=== PATIENT | male | born 1945 | race Caucasian/White ===

== ENCOUNTER 2020-04-03 19:21 | Emergency (ER) | payer OTHER ==
[2020-04-03] MEDS ORDERED: ONDANSETRON 4 MG/2 ML VIAL ONE ×2 (19:45→20:20)
[2020-04-03] MEDS ORDERED: NA CHLORIDE 0.9% 500 ML ONE (19:46)
[2020-04-03 20:07] LABS: Absolute Lymphocytes (CBC) 2.8 K/uL (0.7-4.9); Basophils % 0.9 % (0-1.3); Hematocrit 36.1 % (39.6-49.0); Lymphocytes % 26.3 % (15.3-44.8); MPV 7.4 fL (7.6-11.3); RBC Red Blood Cell Count 4.85 M/uL (4.33-5.43)
[2020-04-03 20:19] LABS: Albumin 3.9 g/dL (3.4-5.0); Bilirubin Direct 0.2 mg/dL (0-0.2); Bilirubin Total 0.9 mg/dL (0.2-1.0); Potassium 3.9 mmol/L (3.5-5.1); Protein, Total 8.4 g/dL (6.4-8.2)
[2020-04-03] MEDS ORDERED: ACETAMINOPHEN 500 MG TAB ONE (20:20)
--- NOTE | 2020-04-03 20:21 | RAD REPORT ---
EXAM DESCRIPTION: CT - Head Brain Wo Cont - 04/03/2020 8:03 pm CLINICAL HISTORY: HEADACHE COMPARISON: No comparisons TECHNIQUE: Axial 5 mm thick images of the head were obtained without IV contrast. All CT scans are performed using dose optimization technique as appropriate and may include automated exposure control or mA/KV adjustment according to patient size. FINDINGS: No intracranial hemorrhage, mass, edema or shift of mid-line structures. No acute infarcti on changes seen. No abnormal extra-axial fluid collections. Ventricles are in proportion brain parenc hymal volume. Patient has mild atrophy and mild chronic ischemic change. Mastoid air cells and visualized portions of the paranasal sinuses are clear. No acute bony findings. IMPRESSION: No acute intracranial finding. Mild atrophy and chronic ischemic change.
[2020-04-03 21:10] LABS: Urine Blood TRACE (NEG); Urine Glucose TRACE (NEG); Urine Protein NEGATIVE (NEG); Urine Specific Gravity 1.015 (1.005-1.030)
--- NOTE | 2020-04-03 21:40 | ER ---
Nurse's Notes [facility] Name: Tomas Braga Age: 74 yrs Sex: Male : 1945 Arrival Date: 04/03/2020 Time: 19:23 Bed 7 Private MD: Diagnosis: Headache Presentation: 04/03 19:24 Chief complaint: Patient states: "About 3:30 my head starting hurting in the back of my aj1 head. I walked in the store and I felt like I was going to fall, but I didn't. So I went and ate and when I got back home my head started hurting really bad and I knew I was going to fall. So I fell and my stomach started hurting really bad and I threw up. So I called my daughter and she brought me here" Patient's daughter states that he has a brain aneurysm, that they had checked in June, and it was stable at that time. Coronavirus screen: Proceed with normal triage. Ebola Screen: Patient denies travel to an Ebola-affected area in the 21 days before illness onset. Initial Sepsis Screen: Does the patient meet any 2 criteria? No. Patient's initial sepsis screen is negative. Does the patient have a suspected source of infection? No. Patient's initial sepsis screen is negative. Risk Assessment: Do you want to hurt yourself or someone else? Patient reports no desire to harm self or others. Onset of symptoms was April 03, 2020. 19:24 Method Of Arrival: Wheelchair aj1 19:24 Acuity: FRITZ 2 aj1 Triage Assessment: 19:32 Headache History: The patient has had previous headaches and this one is more severe aj1 than previous episodes. General: Appears in no apparent distress. uncomfortable, Behavior is calm, cooperative, appropriate for age. Pain: Pain currently is 4 out of 10 on a pain scale. Also complains of nausea, vomiting. Neuro: Level of Consciousness is awake, alert, obeys commands. Historical: - Allergies: 19:32 No Known Allergies; aj1 - Home Meds: 19:32 Insulin Glargine Sub-Q [Active]; Humalog Sub-Q [Active]; Famotidine Oral [Active]; aj1 gabapentin oral oral [Active]; atorvastatin oral oral [Active]; carvedilol oral oral [Active]; Aspirin Oral [Active]; mitochondrial energy booster [Active]; - PMHx: 19:32 Diabetes - NIDDM; Hyperlipidemia; aj1 - Immunization history:: Flu vaccine is not up to date. - Social history:: Smoking status: Patient/guardian denies using tobacco. Screenin:50 Abuse screen: Denies threats or abuse. Denies injuries from another. Nutritional rr5 screening: No deficits noted. Tuberculosis screening: No symptoms or risk factors identified. Fall Risk Fall in past 12 months (25 points). IV access (20 points). Total Nesbitt Fall Scale indicates High Risk Score (45 or more points). Fall prevention measures have been instituted. Side Rails Up X 2 Placed Close to Nursing Station Frequent Obs/Assessments Occuring Family Present and informed to notify staff if the need to leave the bedside As available patient and family educated on Fall Prevention Program and Strategies. Assessment: 20:00 General: Appears in no apparent distress. comfortable, Behavior is calm, cooperative, rr5 appropriate for age. 20:00 Pain: Complains of pain in head Pain does not radiate. Pain currently is 5 out of 10 on rr5 a pain scale. Quality of pain is described as aching, Pain began gradually, Is intermittent. Neuro: Level of Consciousness is awake, alert, obeys commands, Oriented to person, place, time, situation. Cardiovascular: Capillary refill < 3 seconds Patient's skin is warm and dry. Respiratory: Airway is patent Respiratory effort is even, unlabored, Respiratory pattern is regular, symmetrical. GI: Abdomen is round non-distended, Reports lower abdominal pain, upper abdominal pain, nausea. : No signs and/or symptoms were reported regarding the genitourinary system. EENT: No signs and/or symptoms were reported regarding the EENT system. Derm: Skin is intact, is healthy with good turgor, Skin temperature is warm Wound noted right ear top area Wound is 2 punctured wound. Musculoskeletal: Circulation, motion, and sensation intact. Capillary refill < 3 seconds. 20:33 Reassessment: Patient appears in no apparent distress at this time. Patient is alert, rr5 oriented x 3, equal unlabored respirations, skin warm/dry/pink. awaiting for results. 21:50 Reassessment: Patient appears in no apparent distress at this time. Patient is alert, rr5 oriented x 3, equal unlabored respirations, skin warm/dry/pink. discharge instruction given and explained without complaints made Patient states feeling better. Patient states symptoms have improved. Vital Signs: 19:24 BP 165 / 86; Pulse 65; Resp 18; Temp 98.2(TE); Pulse Ox 100% on R/A; Weight 79.38 kg aj1 (R); Height 5 ft. 7 in. (170.18 cm) (R); Pain 5/10; 21:00 BP 155 / 89; Pulse 75; Resp 17; Pulse Ox 98% ; rr5 21:50 BP 141 / 75; Pulse 69; Resp 19; Pulse Ox 99% on R/A; rr5 19:24 Body Mass Index 27.41 (79.38 kg, 170.18 cm) aj1 Milan Coma Score: 21:37 Eye Response: spontaneous(4). Verbal Response: oriented(5). Motor Response: obeys tw4 commands(6). Total: 15. ED Course: 19:23 Patient arrived in ED. cl3 19:30 Triage completed. aj1 19:32 Arm band placed on Patient placed in an exam room. aj1 19:34 Misha Pierce, GISELL is Primary Nurse. rr5 19:34 Reg Rg MD is Attending Physician. tw4 20:00 Patient has correct armband on for positive identification. Bed in low position. Call rr5 light in reach. Side rails up X2. Pulse ox on. NIBP on. 20:00 Inserted saline lock: 20 gauge in right forearm, using aseptic technique. Blood rr5 collected. 20:03 CT Head Brain wo Cont In Process Unspecified. EDMS 20:06 Urine collected: clean catch specimen, clear. rr5 20:10 Wound care: to puncture located on right ear was cleaned with irrigated with normal rr5 saline, dressed with Neosporin, band aid, Patient tolerated well. 21:50 No provider procedures requiring assistance completed. IV discontinued, intact, rr5 bleeding controlled, No redness/swelling at site. Pressure dressing applied. Administered Medications: 20:00 Drug: NS 0.9% 500 ml Route: IV; Rate: bolus; Site: right forearm; rr5 21:00 Follow up: Response: No adverse reaction; IV Status: Completed infusion; IV Intake: rr5 500ml 20:00 Drug: Zofran (Ondansetron) 4 mg Route: IVP; Site: right forearm; rr5 21:00 Follow up: Response: No adverse reaction rr5 20:15 Not Given (Patient Refused): Zofran (Ondansetron) 4 mg IVP once; over 2 minutes mg2 20:15 Drug: Tylenol 1000 mg Route: PO; mg2 21:15 Follow up: Response: No adverse reaction; Pain is decreased rr5 Intake: 21:00 IV: 500ml; Total: 500ml. rr5 Output: 19:55 Urine: 450ml (Voided); Total: 450ml. rr5 Outcome: 21:39 Discharge ordered by . tw4 21:50 Patient left the ED. rr5 21:50 Discharged to home ambulatory, with family. rr5 21:50 Condition: stable 21:50 Discharge instructions given to patient, Instructed on discharge instructions, follow up and referral plans. Demonstrated understanding of instructions, follow-up care, Prescriptions given X 2. Signatures: Dispatcher [employer] EDZenobia Pizarro RN RN aj1 Reg Rg MD MD tw4 El Mccullough RN RN mg2 Misha Pierce RN RN rr5 Shelby Herrera cl3 Corrections: (The following items were deleted from the chart) 22:20 22:19 No provider procedures requiring assistance completed. rr5 rr5 22:20 22:19 IV discontinued, intact, bleeding controlled, No redness/swelling at site. rr5 Pressure dressing applied, rr5
--- NOTE | 2020-04-03 21:40 | EDPHYS ---
Physician Documentation [facility] Name: Tomas Braga Age: 74 yrs Sex: Male : 1945 Arrival Date: 04/03/2020 Time: 19:23 Bed 7 Private MD: ED Physician Reg Rg HPI: 04/03 20:41 This 74 yrs old Male presents to ER via Wheelchair with complaints of tw4 Headache, Vomiting. 20:41 The patient complains of pain to the forehead. The patient describes the headache as a tw4 pressure. Onset: The symptoms/episode began/occurred today. Associated signs and symptoms: The patient has no apparent associated signs or symptoms. Severity of symptoms: At its worst the pain was moderate, in the emergency department the pain is unchanged. Headache History: The patient has had previous headaches and this one is similar to previous episodes. The symptoms are alleviated by nothing. the symptoms are aggravated by nothing. The patient has experienced a previous episode. Historical: - Allergies: 19:32 No Known Allergies; aj1 - Home Meds: 19:32 Insulin Glargine Sub-Q [Active]; Humalog Sub-Q [Active]; Famotidine Oral [Active]; aj1 gabapentin oral oral [Active]; atorvastatin oral oral [Active]; carvedilol oral oral [Active]; Aspirin Oral [Active]; mitochondrial energy booster [Active]; - PMHx: 19:32 Diabetes - NIDDM; Hyperlipidemia; aj1 - Immunization history:: Flu vaccine is not up to date. - Social history:: Smoking status: Patient/guardian denies using tobacco. ROS: 20:41 Constitutional: Negative for fever, chills, and weight loss, Eyes: Negative for injury, tw4 pain, redness, and discharge, Cardiovascular: Negative for chest pain, palpitations, and edema, Respiratory: Negative for shortness of breath, cough, wheezing, and pleuritic chest pain, Abdomen/GI: Negative for abdominal pain, nausea, vomiting, diarrhea, and constipation, Back: Negative for injury and pain, MS/Extremity: Negative for injury and deformity, Skin: Negative for injury, rash, and discoloration. 20:41 Neuro: Positive for headache, Negative for altered mental status, dizziness, gait disturbance, hearing loss, numbness, seizure activity, speech changes, syncope, tinnitus, tremor, visual changes. Exam: 20:41 Constitutional: This is a well developed, well nourished patient who is awake, alert, tw4 and in no acute distress. Head/Face: Normocephalic, atraumatic. Chest/axilla: Normal chest wall appearance and motion. Nontender with no deformity. No lesions are appreciated. Cardiovascular: Regular rate and rhythm with a normal S1 and S2. No gallops, murmurs, or rubs. Normal PMI, no JVD. No pulse deficits. Respiratory: Lungs have equal breath sounds bilaterally, clear to auscultation and percussion. No rales, rhonchi or wheezes noted. No increased work of breathing, no retractions or nasal flaring. Abdomen/GI: Soft, non-tender, with normal bowel sounds. No distension or tympany. No guarding or rebound. No evidence of tenderness throughout. MS/ Extremity: Pulses equal, no cyanosis. Neurovascular intact. Full, normal range of motion. Neuro: Awake and alert, GCS 15, oriented to person, place, time, and situation. Cranial nerves II-XII grossly intact. Motor strength 5/5 in all extremities. Sensory grossly intact. Cerebellar exam normal. Normal gait. Vital Signs: 19:24 BP 165 / 86; Pulse 65; Resp 18; Temp 98.2(TE); Pulse Ox 100% on R/A; Weight 79.38 kg aj1 (R); Height 5 ft. 7 in. (170.18 cm) (R); Pain 5/10; 21:00 BP 155 / 89; Pulse 75; Resp 17; Pulse Ox 98% ; rr5 21:50 BP 141 / 75; Pulse 69; Resp 19; Pulse Ox 99% on R/A; rr5 19:24 Body Mass Index 27.41 (79.38 kg, 170.18 cm) aj1 Blade Coma Score: 21:37 Eye Response: spontaneous(4). Verbal Response: oriented(5). Motor Response: obeys tw4 commands(6). Total: 15. MDM: 21:27 Patient medically screened. tw4 21:37 Differential diagnosis: cluster headache, hypertensive headache, intracerebral tw4 hemorrhage, subarachnoid bleed, subdural hematoma, temporal arteritis, trigeminal neuralgia. Data reviewed: vital signs, nurses notes, lab test result(s), CBC, electrolytes, radiologic studies, CT scan. Data interpreted: Pulse oximetry: Interpretation: normal. Counseling: I had a detailed discussion with the patient and/or guardian regarding: the historical points, exam findings, and any diagnostic results supporting the discharge/admit diagnosis, lab results, radiology results. Medication response: Zofran relieved the patient's nausea. Response to treatment: and as a result, I will discharge patient. Special discussion: I discussed with the patient/guardian in detail that at this point there is no indication for admission to the hospital. It is understood, however, that if the symptoms persist or worsen the patient needs to return immediately for re-evaluation. 04/03 19:35 Order name: Basic Metabolic Panel; Complete Time: 20:37 04/03 20:37 Interpretation: Normal except: NA 132; BUN 20; CRE 1.64; GFR 41; GLUC 152. 04/03 19:35 Order name: CBC with Diff; Complete Time: 20:11 04/03 20:38 Interpretation: Normal except: HGB 11.7; MCV 74.4; HCT 36.1; MCH 24.1; MPV 7.4; RDW tw4 16.4. 04/03 19:35 Order name: Hepatic Function; Complete Time: 20:37 04/03 20:37 Interpretation: Normal except: TP 8.4; GLOB 4.5; A/G 0.9. 04/03 19:35 Order name: Lipase; Complete Time: 20:37 04/03 20:38 Interpretation: Within normal limits: LIP 138. 04/03 20:16 Order name: Urine Dipstick--Ancillary (enter results); Complete Time: 21:18 nv5 04/03 21:18 Interpretation: Normal except: UBLD TRACE. 04/03 19:35 Order name: IV Saline Lock; Complete Time: 20:05 04/03 19:35 Order name: Labs collected and sent; Complete Time: 20:05 04/03 19:51 Order name: CT Head Brain wo Cont; Complete Time: 20:37 tw4 Administered Medications: 20:00 Drug: NS 0.9% 500 ml Route: IV; Rate: bolus; Site: right forearm; rr5 21:00 Follow up: Response: No adverse reaction; IV Status: Completed infusion; IV Intake: rr5 500ml 20:00 Drug: Zofran (Ondansetron) 4 mg Route: IVP; Site: right forearm; rr5 21:00 Follow up: Response: No adverse reaction rr5 20:15 Not Given (Patient Refused): Zofran (Ondansetron) 4 mg IVP once; over 2 minutes mg2 20:15 Drug: Tylenol 1000 mg Route: PO; mg2 21:15 Follow up: Response: No adverse reaction; Pain is decreased rr5 Disposition: 04/03/20 21:39 Discharged to Home. Impression: Headache. - Condition is Stable. - Discharge Instructions: General Headache Without Cause. - Prescriptions for Fiorinal 50- 325-40 mg Oral Capsule - take 1 capsule by ORAL route every 4 hours As needed - not to exceed 6 capsules per day; 20 capsule. Zofran 4 mg Oral Tablet - take 1 tablet by ORAL route every 12 hours As needed; 6 tablet. - Medication Reconciliation Form, Thank You Letter, Antibiotic Education, Prescription Opioid Use form. - Follow up: Private Physician; When: Upon discharge from the Emergency Department; Reason: Recheck today's complaints, Continuance of care, Re-evaluation by your physician. - Problem is new. - Symptoms have improved. Signatures: Dispatcher [employer] [facility] Zenobia Cano RN RN aj1 Reg Rg MD MD tw4 El Mccullough RN RN mg2 Misha Pierce RN RN rr5 Corrections: (The following items were deleted from the chart) 20:03 19:38 Head Brain W/ Wo Con+CT.RAD.BRZ ordered. [facility] 21:50 21:39 04/03/2020 21:39 Discharged to Home. Impression: Headache. Condition is Stable. rr5 Forms are Medication Reconciliation Form, Thank You Letter, Antibiotic Education, Prescription Opioid Use. Follow up: Private Physician; When: Upon discharge from the Emergency Department; Reason: Recheck today's complaints, Continuance of care, Re-evaluation by your physician. Problem is new. Symptoms have improved. tw4
[2020-04-03 22:06] VITALS: BP 165/86; TEMP 98.2; O2SAT 100
== END 2020-04-03 21:50 | disposition home or self-care (01) ==
LOC: ER 19:21
DX: R51 Headache (principal); E11.9 Type 2 diabetes mellitus without complications; E78.5 Hyperlipidemia, unspecified; Z79.4 Long term (current) use of insulin
CPT/HCPCS: 96361; 85025; 80048; 36415; 80076; 81003; 83690; 70450; 96374; 99284; J7040; J2405 ×2

== ENCOUNTER 2021-12-08 07:42 | Day surgery (SDC) | payer OTHER ==
[2021-12-08] MEDS ORDERED: NA CHLORIDE 0.9% 1,000 ML ONE (08:01)
[2021-12-08] MEDS ORDERED: FENTANYL CITR 100 MCG/2 ML ONE (10:20)
[2021-12-08] MEDS ORDERED: propofoL 200 MG/20 ML VIAL IV ONE (10:21)
[2021-12-08] MEDS ORDERED: MIDAZOLAM HCL 2 MG/2 ML INJ ONE (10:21)
[2021-12-08] MEDS ORDERED: LIDOCAINE 2% MPF 5 ML VIAL ONE (10:21)
[2021-12-08] MEDS ORDERED: LIDOCAINE 1% W/EPI 1:100,000 10 ML VIAL ONE (10:22)
[2021-12-08] MEDS ORDERED: EPHEDRINE SULF 50 MG/ML VIAL ONE (10:50)
[2021-12-08] MEDS ORDERED: CEFAZOLIN SODIUM 1 GM/VIAL ONE (10:58)
--- NOTE | 2021-12-08 12:39 | P.OP ---
Data Software Engineer: NONE,NONE Preoperative diagnosis: neoplasm uncertain behavior, skin Postoperative diagnosis: squamous cell carcinoma, left face Primary procedure: excision, left cheek/face, 4 cm x 3.5cm Secondary procedure: allograph (Theraskin) Anesthesia: General via LMA Estimated blood loss: 5-10ml Specimen: left cheek, Frozen section, suture mccarthy 12 oclock/superior Findings: negative peripheral and deep margins Operative Technique: Patient is brought to the operating room and placed under general anesthesia via oral LMA. The head was turned towards the right for exposure of the left face. The exophytic tumor was noted in the preauricular cheek. The tumor itself was approximately 2 x 2-1/2 cm with central ulceration and exophytic portion. A 8 to 10 mm margin was designed around the lesion and marked with a surgical pen. The superiormost aspect was designated as 12:00 for pathologic orientation. The 3:00 margin coincided with the edge of the tragal cartilage. The 9:00 margin slightly overlapped the patient's prior surgical site and well-healed skin graft from 2017. The needlepoint Bovie electrocautery was used to incise through the skin and subcutaneous tissue along the planned incision. The lesion was elevated along the SMAS layer. There was no lola invasion through this layer and no exposure of the parotid gland. Once the lesion was completely removed it was sent to pathology for frozen section analysis. Several areas of bleeding along the deep aspect were ligated with silk suture. The pathologist confirmed negative peripheral and deep margins. The surgical defect measured 4.0 x 3.6 cm the full-thickness skin and subcutaneous tissues down to the layer of the periparotid fascia. A TheraSkin allograft was applied to the defect which was secured in a radial fashion using 2-0 silk sutures. A Xeroform bolster was then applied over the allograft and cured using the silk sutures. The surrounding skin was cleaned and dried. The procedure was concluded and the patient was returned to anesthesia for awakening and extubation in the operating room which proceeded without difficulty. Complications: None Implants: none Transferred to: Recovery Room Condition: Good
[2021-12-08] MEDS ORDERED: D10W 125 ML IV ONE (13:00)
[2021-12-08] MEDS: MORPHINE 4 MG/ML SYR ONE ×4 (13:12→13:33)
[2021-12-08] MEDS ORDERED: HYDROMORPHONE HCL 1 MG/ML INJ ONE (13:40)
[2021-12-08] MEDS ORDERED: ONDANSETRON 4 MG/2 ML VIAL ONE (14:21)
[2021-12-08 14:47] VITALS: BP 125/55; TEMP 96.5; O2SAT 93
== END 2021-12-08 15:48 | disposition home or self-care (01) ==
LOC: OR 07:42
PROVIDERS: ATTEND Otolaryngology
PROC: 0JB10ZZ Excision of Face Subcutaneous Tissue and Fascia, Open Approach (ICD-10-PCS; principal; 2021-12-08 09:15)
DX: C76.0 Malignant neoplasm of head, face and neck (principal); Z20.822 Contact with and (suspected) exposure to COVID-19
CPT/HCPCS: 93005; 82947 ×3; 88331; 88332; 88305; 11644; 15275; U0002; J2704; J2250; J3010; J1170; J7030; J2405; J0690

== ENCOUNTER 2024-09-27 12:49 | Emergency (ER) | payer OTHER ==
--- OUTSIDE RECORDS SUMMARY | 2024-09-27 12:51 | XMS REPORT | Continuity of Care Document ---
Author Name Unknown Address [address] [facility] [address] [place] [address] [facility] thconnect Address [address] [place] [address] Care Team Providers Care Creative Developer Name Role Phone Deyanira Valdez Attending Clinician Unavail able Mauricio Colmenares Attending Clinician Unavailable Payers Payer Name Policy Type Policy Number Effective Date Expirati on Date Source [facility] C1 [id number] [facility] [id number] [facility] [id number] [facility] [id number] [facility] [id number] [facility] [id number] [facility] [id number] [facility] Problems Condition Name Condition Details Condition Category Status Onset Date Resolution Date Last Treatment Date Treating Clinician Comments Source [id number] Hydrocele, right Problem Active [facility] Benign prostatic hyperplasi a BPH (benign prostatic hyperplasi a) Problem Active [facility] 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 Ordering Clinician Indication Dosage Frequency Signature (SIG) Comments Components Source Doxycycline Hyclate 100 MG Doxycycline Hyclate 100 MG 05-04 00:00: 00 05-05 00:00 :00 No 2{capsu les} Doxycyclin e Hyclate 100 MG Cefdinir 300 MG Cefdinir 300 MG 04-03 00:00: 00 04-10 00:00 :00 No BID Cefdinir 300 MG [facility] Atorvastati n Calcium 20 MG Atorvastati n Calcium 20 MG No 1{table t} QD Atorvastat in Calcium 20 MG Aspirin 81 81 MG Aspirin 81 81 MG No 1{table t} QD Aspirin 81 81 MG Gabapentin 100 MG Gabapentin 100 MG No 1{capsu le} QD Gabapentin 100 MG Toujeo SoloStar 300u/ml Toujeo SoloStar 300u/ml No QD Toujeo SoloStar 300u/ml HumaLOG KwikPen 100 UNIT/ML HumaLOG KwikPen 100 UNIT/ML No HumaLOG KwikPen 100 UNIT/ML Cefuroxime Axetil 250 MG Cefuroxime Axetil 250 MG No 1{table t} BID Cefuroxime Axetil 250 MG Carvedilol 6.25 MG Carvedilol 6.25 MG No 1{table t_with_ food} BID Carvedilol 6.25 MG Multi Vitamin - Multi Vitamin - No 1{table t} QD Multi Vitamin - Famotidine 40 MG Famotidine 40 MG No 1{table t_at_be dtime} QD Famotidine 40 MG Vital Signs Vital Name Observation Time Observation Value Comments S julio césar height 2021-05-09 15:15:00 68 [in_i] Commo n [facility] weight 2021-05-09 15:15:00 187 [lb_av] Comm on [facility] temperature 2021-05-09 15:15:00 97.3 [degF] Com mon [facility] bmi 2021-05-09 15:15:00 28.43 kg/m2 Comm on [facility] oximetry 2021-05-09 15:15:00 98 % Commo n [facility] blood pressure systolic 2021-05-09 15:15:00 108 mm[Hg] [facility] pressure diastolic 2021-05-09 15:15:00 62 mm[Hg] [facility] height 2021-05-04 08:00:00 68 [in_i] Commo n [facility] weight 2021-05-04 08:00:00 180 [lb_av] Comm on [facility] temperature 2021-05-04 08:00:00 97.9 [degF] Com mon [facility] bmi 2021-05-04 08:00:00 27.37 kg/m2 Comm on [facility] oximetry 2021-05-04 08:00:00 99 % Commo n [facility] blood pressure systolic 2021-05-04 08:00:00 96 mm[Hg] [facility] blood pressure diastolic 2021-05-04 08:00:00 55 mm[Hg] [facility] height 2021-05-02 16:20:00 68 [in_i] Commo n [facility] weight 2021-05-02 16:20:00 183.4 [lb_av] Co mmon [facility] temperature 2021-05-02 16:20:00 98.5 [degF] Com mon [facility] bmi 2021-05-02 16:20:00 27.88 kg/m2 Comm on [facility] oximetry 2021-05-02 16:20:00 96 % Commo n [facility] blood pressure systolic 2021-05-02 16:20:00 114 mm[Hg] [facility] blood pressure diastolic 2021-05-02 16:20:00 65 mm[Hg] Common [facility] height 2021-04-03 13:40:00 68 [in_i] Commo n [facility] weight 2021-04-03 13:40:00 183.4 [lb_av] Co mmon [facility] temperature 2021-04-03 13:40:00 98.5 [degF] Com mon [facility] bmi 2021-04-03 13:40:00 27.88 kg/m2 Comm on [facility] oximetry 2021-04-03 13:40:00 94 % Commo n [facility] blood pressure systolic 2021-04-03 13:40:00 97 mm[Hg] [facility] blood pressure diastolic 2021-04-03 13:40:00 54 mm[Hg] [facility] Encounters Start Date/Time End Date/Time Encounter Type Admission Type Attending [facility] Care Facility Care Department Encounter ID Source 2024-04-09 13:34:01 Outpatient Deyanira Valdez [facility] [id number] [facility] 2021-11-15 13:25:55 Outpatient Mauricio Colmenares [facility] [id number] [facility] 2021-11-15 13:14:16 Outpatient Mauricio Colmenares [facility] [id number] [facility] 2021-07-05 00:00:00 2021-07-05 00:00:00 (TEL) [facility]LMLC STL[facility] [id number] [facility] 2021-05-09 00:00:00 2021-05-09 00:00:00 (ESTPT) Establishe d Patient STLMLC STLML[facility] [id number] [facility] 2021-05-04 00:00:00 2021-05-04 00:00:00 OFFICE VISIT EST PT LEVEL 3 [facility]LMLC STL[facility] [id number] [facility] 2021-05-02 00:00:00 2021-05-02 00:00:00 OFFICE VISIT EST PT LEVEL 3 [facility]LMLC STLML[facility] [id number] [facility] 2021-04-18 00:00:00 2021-04-18 00:00:00 (TEL) STLMLC STLMLC [id number] [facility] 2021-04-03 00:00:00 2021-04-03 00:00:00 OFFICE VISIT NEW PT LEVEL 3 [facility]C STL[facility]C [id number] [facility]
[2024-09-27 15:20] LABS: Absolute Basophils 0.1 K/uL (0-0.5); Absolute Eosinophils 0.2 K/uL (0-0.5); Absolute Lymphocytes (CBC) 2.5 K/uL (0.7-4.9); Absolute Neutrophil 7.8 K/uL (1.8-8.0); Basophils % 0.5 % (0-1.3); Eosinophils % 1.5 % (0-4.4); Hematocrit 39.1 % (39.6-49.0); Hemoglobin 12.8 g/dL (13.6-17.9); Lymphocytes % 21.7 % (15.3-44.8); MCH 29.5 pg (27.0-35.0); MCHC 32.7 g/dL (32.0-36.0); MCV 90.1 fL (80-100); Monocytes % 8.3 % (3.3-12.3); Platelets 338 thou/uL (152-406); RBC Red Blood Cell Count 4.35 M/uL (4.33-5.43); Red Cell Distribution Width 13.8 % (12.1-15.2)
[2024-09-27 15:44] LABS: Albumin 3.2 g/dL (3.4-5.0); Albumin/Globulin Ratio 0.7 (1.1-1.8); Anion Gap 8.5 mEq/L (5.0-15.0); Bilirubin Direct 0.2 mg/dL (0-0.2); Bilirubin Indirect, Calculated 0.3 mg/dL (0.2-0.8); Bilirubin Total 0.5 mg/dL (0.2-1.0); Globulin 4.6 g/dL (2.3-3.5); Magnesium 2.5 mg/dL (1.6-2.4); Potassium 4.5 mEq/L (3.5-5.1); Protein, Total 7.8 g/dL (6.4-8.2); Troponin High Sensitivity 25.1 pg/mL (<58.9)
--- NOTE | 2024-09-27 16:22 | RAD REPORT ---
EXAMINATION: CT HEAD WITHOUT CONTRAST CT CERVICAL SPINE WITHOUT CONTRAST CLINICAL INDICATION: Male, 79 years old. TRAUMA TECHNIQUE: Axial CT images from the skull base to the vertex without intravenous contrast. Axial CT i mages through the cervical spine were obtained without intravenous contrast. Sagittal and coronal reformatted images were created from the data set. Coronal and sagittal reformatted images were creat ed from the data set. One or more of the following dose reduction techniques were used: Automated exposure control, adjustment of the mA and/or kV according to patient size, and/or iterative reconstr uction. Unless otherwise specified, incidental findings do not require dedicated imaging follow-up. [id number]. COMPARISON: 04/03/2020 FINDINGS: Head: INTRACRANIAL: No acute intracranial hemorrhage. No hydrocephalus. No mass effect or midline shift. No significant white matter disease. VASCULATURE: No visualized abnormalities in the arteries or dural venous sinuses. SCALP/SKULL: No significant soft tissue or osseous abnormalities. SINUSES: The visualized paranasal sinuses and mastoid air cells are predominantly clear. Cervical spine: ALIGNMENT: Loss of the normal cervical lordosis. Trace anterolisthesis of C3 on C4 is noted. Trace re trolisthesis of C5 on C6. BONE: Vertebral body heights are maintained. No aggressive osseous lesions. DEGENERATIVE CHANGES: Multilevel cervical spondylosis with varying degrees of neural foraminal narrow ing. No high-grade central spinal stenosis. SOFT TISSUE: No significant abnormalities in the soft tissue of the neck. The visualized lung apices are clear. IMPRESSION: No acute intracranial abnormality. No acute fracture or traumatic malalignment of the cervical spine.
--- NOTE | 2024-09-27 16:26 | RAD REPORT ---
EXAM: CT CHEST, ABDOMEN AND PELVIS WITHOUT CONTRAST CLINICAL INDICATION: Male, 79 years TRAUMA TECHNIQUE: CT chest, abdomen and pelvis was performed, with IV contrast, as per department protocol. Axial, sagittal and coronal reconstructions were obtained. One or more of the following dose reduction techniques were used: Automated exposure control, adjustment of the mA and/or kV according to the patient size, and/or iterative reconstruction. Unless otherwise specified, incidental findings do not require dedicated imaging follow-up. [id number]. COMPARISON: No prior exam. FINDINGS: Chest: LOWER NECK/CHEST WALL: Visualized thyroid gland and soft tissues are normal. LUNGS AND AIRWAYS: Airways are clear. No evidence of airspace or interstitial process. No nodules. PLEURA: No pleural effusion. No pneumothorax. Hemidiaphragms are normally positioned. MEDIASTINUM AND LYMPH NODES: No mediastinal mass or fluid collection. Normal size mediastinal, hilar, and axillary lymph nodes. THORACIC AORTA: Normal caliber and configuration. PULMONARY ARTERIES: Normal caliber. HEART: Multivessel coronary disease. No pericardial effusion. Normal heart size. Abdomen/Pelvis LIVER: Normal in size and contour. No focal lesion. GALLBLADDER/BILE DUCTS: No biliary ductal dilatation. PANCREAS: Pancreatic atrophy. SPLEEN: Normal size. No focal lesion. ADRENALS: Normal; no mass. KIDNEYS AND URETERS: Bilateral hydroureteronephrosis. Both kidneys are atrophic with renal cortical t hinning. Nonobstructing stones in the kidneys bilaterally. No ureteral calculi. GASTROINTESTINAL TRACT: Moderate formed stool. No bowel obstruction. No appendicitis. PERITONEUM: No free fluid. LYMPH NODES: No lymphadenopathy. ABDOMINAL AORTA AND OTHER VESSELS: Atherosclerotic changes. URINARY BLADDER: Distended bladder. REPRODUCTIVE ORGANS: Question prior TURP . MUSCULOSKELETAL: No acute or suspicious osseous abnormality. Bridging osteophytes in the spine. ADDITIONAL FINDINGS: None IMPRESSION: 1. Mild bilateral hydroureteronephrosis with distended bladder could be secondary to bladder outlet o bstruction. Chronic renal cortical thinning. 2. No acute findings in the chest.
--- NOTE | 2024-09-27 17:00 | ER ---
Nurse's Notes [facility] Name: Tomas Braga Age: 79 yrs Sex: Male : 1945 Arrival Date: 09/27/2024 Time: 12:49 Bed 8 Private MD: Diagnosis: Orthostatic hypotension, closed head injury, multiple abrasions, and frequent falls, bladder outflow obstruction, renal insufficiency Presentation: 09/27 13:42 Acuity: FRITZ 2 aa5 13:42 Chief complaint: Patient states: "I fell twice today and I fallen a few times over the aa5 weekend as well". Pt states "I just get weak and fall". Pt c/o pain to head and abdomen. Initial Sepsis Screen: Does the patient meet any 2 criteria? No. Patient's initial sepsis screen is negative. Does the patient have a suspected source of infection? No. Patient's initial sepsis screen is negative. Risk Assessment: Do you want to hurt yourself or someone else? Patient reports no desire to harm self or others. Onset of symptoms was September 27, 2024. 13:42 Coronavirus screen: At this time, the client does not indicate any symptoms associated aa5 with coronavirus-19. Ebola Screen: Patient denies travel to an Ebola-affected area in the 21 days before illness onset. 13:42 Method Of Arrival: Wheelchair aa5 Historical: - Allergies: 13:44 shrimp; aa5 - PMHx: 13:43 Diabetes - NIDDM; Hyperlipidemia; Hypertensive disorder; aa5 - Immunization history:: Adult Immunizations unknown. - Infectious Disease History:: Denies. - Social history:: Smoking status: Patient denies any tobacco usage or history of. Screenin:27 [facility] ED Fall Risk Assessment (Adult) History of falling in the last 3 months, tm6 including since admission Yes- fall prone (multiple falls) (3 pts) Confusion or Disorientation No (0 pts) Intoxicated or Sedated No (0 pts) Impaired Gait No (0 pts) Mobility Assist Device Used No (0 pt) Altered Elimination No (0 pt) Score/Fall Risk Level 3 or more points = High Risk Oriented to surroundings, Maintained a safe environment, Educated pt \\T\\ family on fall prevention, incl call for assistance when getting out of bed. Abuse screen: Denies threats or abuse. Denies injuries from another. Nutritional screening: No deficits noted. Tuberculosis screening: No symptoms or risk factors identified. Assessment: 15:27 General: Appears in no apparent distress. Behavior is calm, cooperative. Pain: Denies tm6 pain. Neuro: Level of Consciousness is awake, alert, obeys commands, Oriented to person, place, time, situation, Reports dizziness, upon standing. Cardiovascular: Reports lightheadedness, Patient's skin is warm and dry. Respiratory: Airway is patent Respiratory effort is even, unlabored, Respiratory pattern is regular, symmetrical. GI: No signs and/or symptoms were reported involving the gastrointestinal system. Abdomen is flat, non-distended. : No signs and/or symptoms were reported regarding the genitourinary system. EENT: No signs and/or symptoms were reported regarding the EENT system. Derm: No signs and/or symptoms reported regarding the dermatologic system. Musculoskeletal: No signs and/or symptoms reported regarding the musculoskeletal system. Vital Signs: 13:42 BP 98 / 63; Pulse 81; Resp 16 S; Temp 98(O); Pulse Ox 97% on R/A; Weight 81.65 kg (R); aa5 Height 5 ft. 7 in. (R); 15:20 BP 141 / 70 Supine; Pulse 66; Resp 18; Pulse Ox 99% on R/A; MAP 90 mmHg; Pain 0/10; tm6 15:27 BP 106 / 54 Sitting; Pulse 76; Pulse Ox 96% on R/A; MAP 67 mmHg; tm6 16:30 BP 132 / 67; Pulse 70; Resp 18; Pulse Ox 100% on R/A; ph 17:16 BP 125 / 67; Pulse 73; Resp 18; Temp 97.9; Pulse Ox 98% on R/A; ph 13:42 Body Mass Index 28.19 (81.65 kg, 170.18 cm) aa5 15:20 Pain Scale: Adult tm6 ED Course: 12:53 Patient arrived in ED. mg5 13:42 Triage completed. aa5 13:42 Arm band placed on. aa5 14:17 Kolby Anand MD is Attending Physician. sp3 14:51 Enio Ashton, GISELL is Primary Nurse. tm6 15:17 Basic Metabolic Panel Sent. em1 15:17 CBC with Diff Sent. em1 15:17 LFT's Sent. em1 15:17 Magnesium Sent. em1 15:17 Troponin HS Sent. em1 15:17 Initial lab(s) drawn, by me, sent to lab. Inserted saline lock: 20 gauge in right em1 antecubital area, using aseptic technique. Blood collected. Flushed with 10 mL NS. 15:19 EKG done, by ED staff, reviewed by Kolby Anand MD. tm6 15:27 Patient has correct armband on for positive identification. Bed in low position. Call tm6 light in reach. Side rails up X2. Provided Education on: use of call puentes. Client placed on continuous cardiac and pulse oximetry monitoring. NIBP monitoring applied. accounting coordinator on. Pulse ox on. NIBP on. Door closed. Noise minimized. Pillow given. 16:10 Head C Spine Mpr Wo Con In Process Unspecified. EDMS 16:10 Chest Abdomen Pelvis W Cont In Process Unspecified. EDMS 16:59 UAM Sent. tm6 17:17 No provider procedures requiring assistance completed. IV discontinued, intact, ph bleeding controlled, No redness/swelling at site. Pressure dressing applied. Administered Medications: No medications were administered Medication: 15:27 VIS not applicable for this client. tm6 Outcome: 16:59 Discharge ordered by . sp3 17:17 Discharged to home via wheelchair, with family, 17:17 Condition: good 17:17 Discharge instructions given to patient, family, Instructed on discharge instructions, follow up and referral plans. Demonstrated understanding of instructions, follow-up care, 17:17 Patient left the ED. ph Addendum: 09/30/2024 16:10 Addendum: Culture Results: Positive urine culture. Phone call Attempt #1 left message. l l1 16:27 Addendum: Culture Results: Prescription called-in to pharmacy of choice. [facility] in [place]. Amoxicillin. Signatures: Dispatcher [employer] EDMS Brayden Alvarez em1 Jordana Gallardo, RN RN aa5 Meseret Wright, GISELL JAMESON ph Juju Herrera, RN RN ll1 Kolby Anand MD MD sp3 Ernestina Chavez 5 Enio Ashton RN RN tm6 Corrections: (The following items were deleted from the chart) 09/27 13:45 13:43 Allergies: No Known Allergies; aa5 aa5 16:23 16:23 Urine 1200, (Voided), output 1200, tm6 tm6
--- NOTE | 2024-09-27 17:00 | EDPHYS ---
Physician Documentation [facility] Name: Tomas Braga Age: 79 yrs Sex: Male : 1945 Arrival Date: 09/27/2024 Time: 12:49 Bed 8 Private MD: ED Physician Kolby Anand HPI: 09/27 16:54 This 79 yrs old Male presents to ER via Wheelchair with complaints of Fall Injury. 3 16:54 79-year-old male with history of diabetes, hyperlipidemia, hypertension presents to the [facility] ED with chief complaint frequent falls particularly after getting up. He denies any prodrome other than dizziness. Injuries include closed head injury with abrasions and hematoma, multiple abrasions throughout the body. He denies before or after falls chest pain, shortness of breath, fever or any other symptoms. ROS otherwise negative.. Historical: - Allergies: 13:44 shrimp; aa5 - PMHx: 13:43 Diabetes - NIDDM; Hyperlipidemia; Hypertensive disorder; aa5 - Immunization history:: Adult Immunizations unknown. - Infectious Disease History:: Denies. - Social history:: Smoking status: Patient denies any tobacco usage or history of. ROS: 16:56 Constitutional: Negative for fever, chills, and weight loss, Eyes: Negative for injury, sp3 pain, redness, and discharge, Neck: Negative for injury, pain, and swelling, Cardiovascular: Negative for chest pain, palpitations, and edema, Respiratory: Negative for shortness of breath, cough, wheezing, and pleuritic chest pain, Abdomen/GI: Negative for abdominal pain, nausea, vomiting, diarrhea, and constipation, Back: Negative for injury and pain, MS/Extremity: Negative for injury and deformity, Skin: Negative for injury, rash, and discoloration, Psych: Negative for depression, anxiety, suicide ideation, homicidal ideation, and hallucinations, Allergy/Immunology: Negative for hives, rash, and allergies, Endocrine: Negative for neck swelling, polydipsia, polyuria, polyphagia, and marked weight changes, 16:56 All other systems are negative, Exam: 16:15 ECG was reviewed by the Attending Physician. EKG demonstrates normal sinus rhythm at 71 sp3 bpm with patient to AV block with MA interval 234 with occasional ectopy, leftward axis and poor R wave progression, and nonspecific diffuse ST's ST changes without evidence of acute ischemia. 16:57 Constitutional: This is a well developed, well nourished patient who is awake, alert, sp3 and in no acute distress. Eyes: Pupils equal round and reactive to light, extra-ocular motions intact. Lids and lashes normal. Conjunctiva and sclera are non-icteric and not injected. Cornea within normal limits. Periorbital areas with no swelling, redness, or edema. ENT: Nares patent. No nasal discharge, no septal abnormalities noted. External auditory canals are clear. Oropharynx with no redness, swelling, or masses, exudates, or evidence of obstruction, uvula midline. Mucous membranes moist. Chest/axilla: Normal chest wall appearance and motion. Nontender with no deformity. No lesions are appreciated. Cardiovascular: Regular rate and rhythm with a normal S1 and S2. No gallops, murmurs, or rubs. Normal PMI, no JVD. No pulse deficits. Respiratory: Lungs have equal breath sounds bilaterally, clear to auscultation and percussion. No rales, rhonchi or wheezes noted. No increased work of breathing, no retractions or nasal flaring. Abdomen/GI: Soft, non-tender, with normal bowel sounds. No distension or tympany. No guarding or rebound. No evidence of tenderness throughout. Back: No spinal tenderness. No costovertebral tenderness. Full range of motion. Psych: Awake, alert, with orientation to person, place and time. Behavior, mood, and affect are within normal limits. 16:57 Head/face: Patient with abrasions to the forehead and scalp with abrasions also present on bilateral elbows and torso. No significant bony or MSK injury noted on the extremities. Chest and abdomen exam are negative for any traumatic findings. Vital signs are normal.. Vital Signs: 13:42 BP 98 / 63; Pulse 81; Resp 16 S; Temp 98(O); Pulse Ox 97% on R/A; Weight 81.65 kg (R); aa5 Height 5 ft. 7 in. (R); 15:20 BP 141 / 70 Supine; Pulse 66; Resp 18; Pulse Ox 99% on R/A; MAP 90 mmHg; Pain 0/10; tm6 15:27 BP 106 / 54 Sitting; Pulse 76; Pulse Ox 96% on R/A; MAP 67 mmHg; tm6 16:30 BP 132 / 67; Pulse 70; Resp 18; Pulse Ox 100% on R/A; ph 17:16 BP 125 / 67; Pulse 73; Resp 18; Temp 97.9; Pulse Ox 98% on R/A; ph 13:42 Body Mass Index 28.19 (81.65 kg, 170.18 cm) aa5 15:20 Pain Scale: Adult tm6 MDM: 14:43 Medical Screening Exam initiated sp3 16:57 Data reviewed: vital signs, nurses notes, lab test result(s), EKG, radiologic studies. sp3 ED course: 79-year-old male with frequent falls and dizziness/near syncope. Differential diagnosis includes orthostatic hypotension, electrolyte abnormality, other infectious process, other intracranial process, among others. Workup will include CT scan of the head, C-spine, chest abdomen pelvis trauma protocol, general labs, UA and general supportive care. Orthostatic demonstrate significant drop in blood pressure upon standing and I believe this is the culprit of his symptoms. CT scan demonstrates no intracranial or C-spine findings and bilateral urine back up consistent with probable outflow obstruction which may be incidental finding. Creatinine is mildly elevated. This time we will discharge patient home with follow-up to his PCP and urology and instructions on how to combat orthostatic hypotension. No other findings noted from a trauma standpoint patient is stable and cleared for discharge.. 09/27 14:45 Order name: Basic Metabolic Panel; Complete Time: 16:40 sp3 09/27 14:45 Order name: CBC with Diff; Complete Time: 16:40 sp3 09/27 14:45 Order name: LFT's; Complete Time: 16:40 sp3 09/27 14:45 Order name: Magnesium; Complete Time: 16:40 sp3 09/27 14:45 Order name: Troponin HS; Complete Time: 16:40 sp3 09/27 14:45 Order name: UAM sp3 09/27 17:17 Order name: Urine Culture EDMS 09/27 14:56 Order name: Head C Spine Mpr Wo Con; Complete Time: 16:40 EDMS 09/27 14:58 Order name: Chest Abdomen Pelvis W Cont; Complete Time: 16:40 EDMS 09/27 14:45 Order name: EKG; Complete Time: 14:45 sp3 09/27 14:45 Order name: Cardiac monitoring; Complete Time: 15:19 sp3 09/27 14:45 Order name: EKG - Nurse/Tech; Complete Time: 15:19 sp3 09/27 14:45 Order name: IV Saline Lock; Complete Time: 15:17 sp3 09/27 14:45 Order name: Labs collected and sent; Complete Time: 15:17 sp3 09/27 14:45 Order name: O2 Per Protocol; Complete Time: 15:19 sp3 09/27 14:45 Order name: O2 Sat Monitoring; Complete Time: 15:19 sp3 Administered Medications: No medications were administered Disposition Summary: 09/27/24 16:59 Discharge Ordered Notes: Location: Home sp3 Condition: Stable sp3 Diagnosis - Orthostatic hypotension, closed head injury, multiple abrasions, and frequent sp3 falls, bladder outflow obstruction, renal insufficiency Followup: sp3 - With: Private Physician - When: Upon discharge from the Emergency Department - Reason: Continuance of care Discharge Instructions: - Discharge Summary Sheet sp3 - Orthostatic Hypotension sp3 - Understanding Your Risk for Falls sp3 Forms: - Medication Reconciliation Form sp3 - Antibiotic Education sp3 - Prescription Opioid Use sp3 - Patient Portal Instructions sp3 - Leadership Thank You Letter sp3 Signatures: Dispatcher [employer] Jordana Haynes RN RN aa5 Kolby Anand MD MD sp3 Corrections: (The following items were deleted from the chart) 13:45 13:43 Allergies: No Known Allergies; aa5 aa5 14:56 14:45 Head C Spine CAP W Con+CT.RAD.BRZ ordered. EDMS EDMS
[2024-09-27 17:14] LABS: Specific Gravity 1.009 (1.005-1.030); Sqamous Epithelial <5 /HPF (None Seen); Urine Bacteria <20 /HPF (<20); Urine Bilirubin NEGATIVE (Negative); Urine Blood Trace (Negative); Urine Clarity Extremely Turbid (Clear); Urine Color Light-Yellow (Yellow); Urine Crystals Unidentified Few /HPF (None Seen); Urine Culture Reflex Order REFLEXED; Urine Glucose NEGATIVE (Negative); Urine Ketones NEGATIVE (Negative); Urine Micro Reflex YN NO BILL MICROSCOPIC; Urine Nitrite NEGATIVE (Negative); Urine Protein NEGATIVE (Negative); Urine RBC 21-50 /HPF (None Seen); Urine Urobilinogen Normal (Normal); Urine WBC >50 /HPF (<5)
[2024-09-27 20:04] VITALS: BP 125/67; TEMP 97.9; O2SAT 98
== END 2024-09-27 17:17 | disposition home or self-care (01) ==
LOC: ER 12:49
DX: I95.1 Orthostatic hypotension (principal); S00.01XA Abrasion of scalp, initial encounter; S00.81XA Abrasion of other part of head, initial encounter; S50.312A Abrasion of left elbow, initial encounter; S50.311A Abrasion of right elbow, initial encounter; R29.6 Repeated falls; N32.0 Bladder-neck obstruction; N28.9 Disorder of kidney and ureter, unspecified; E11.9 Type 2 diabetes mellitus without complications; I10 Essential (primary) hypertension
CPT/HCPCS: 87088; 85025; 81001; 87086; 80048; 36415; 83735; 80076; 87077; 87186; 84484; 70450; 72125; 71260; 74177; 99284; Q9967

== ENCOUNTER 2024-10-13 21:51 | Inpatient (IN) | payer OTHER ==
--- OUTSIDE RECORDS SUMMARY | 2024-10-13 21:54 | XMS REPORT | Continuity of Care Document ---
Author Name Unknown Address [address] [facility] [facility] [place] [address] [facility] thconnect Address [address] [facility] [address] [place] [address] Care Team Providers Care Talent Acquisition Relationship Manager Name Role Phone Deyanira Valdez Attending Clinician Unavail able Mauricio Colmenares Attending Clinician Unavailable Payers Payer Name Policy Type Policy Number Effective Date Expirati on Date Source [facility] LIFE INS [facility] C1 [id number] [facility] [id number] [facility] [id number] [facility] [id number] [facility] [id number] [facility] [id number] [facility] [id number] C [facility] Problems Condition Name Condition Details Condition Category Status Onset Date Resolution Date Last Treatment Date Treating Clinician Comments Source [id number] Hydrocele, right Problem Active [facility] Benign prostatic hyperplasi a BPH (benign prostatic hyperplasi a) Problem Active [facility] 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 Ordering Clinician Indication Dosage Frequency Signature (SIG) Comments Components Source Doxycycline Hyclate 100 MG Doxycycline Hyclate 100 MG 05-04 00:00: 00 05-05 00:00 :00 No 2{capsu les} Doxycyclin e Hyclate 100 MG Cefdinir 300 MG Cefdinir 300 MG 04-03 00:00: 00 04-10 00:00 :00 No BID Cefdinir 300 MG [facility] Atorvastati n Calcium 20 MG Atorvastati n [...] height 2021-05-09 15:15:00 68 [in_i] Commo n [facility] weight 2021-05-09 15:15:00 187 [lb_av] Comm on [facility] temperature 2021-05-09 15:15:00 97.3 [degF] Com mon [facility] bmi 2021-05-09 15:15:00 28.43 kg/m2 Comm on [facility] oximetry 2021-05-09 15:15:00 98 % Commo n [facility] blood pressure systolic 2021-05-09 15:15:00 108 mm[facility]Hg[facility] blood pressure diastolic 2021-05-09 15:15:00 62 mm[Hg] [facility] height 2021-05-04 08:00:00 68 [in_i] Commo n [facility] weight 2021-05-04 08:00:00 180 [lb_av] Comm on [facility] temperature 2021-05-04 08:00:00 97.9 [degF] Com mon [facility] bmi 2021-05-04 08:00:00 27.37 kg/m2 Comm on [facility] oximetry 2021-05-04 08:00:00 99 % Commo n [facility] blood pressure systolic 2021-05-04 08:00:00 96 mm[Hg] [facility] blood pressure diastolic 2021-05-04 08:00:00 55 mm[Hg] [facility] height 2021-05-02 16:20:00 68 [in_i] Commo n [facility] weight 2021-05-02 16:20:00 183.4 [lb_av] Co mmon [facility] temperature 2021-05-02 16:20:00 98.5 [degF] Com mon [facility] bmi 2021-05-02 16:20:00 27.88 kg/m2 Comm on [facility] oximetry 2021-05-02 16:20:00 96 % Commo n [facility] blood pressure systolic 2021-05-02 16:20:00 114 mm[Hg] Common [facility] blood pressure diastolic 2021-05-02 16:20:00 65 mm[Hg] Common [facility] height 2021-04-03 13:40:00 68 [in_i] Commo n [facility] weight 2021-04-03 13:40:00 183.4 [lb_av] Co mmon [facility] temperature 2021-04-03 13:40:00 98.5 [degF] Com mon [facility] bmi 2021-04-03 13:40:00 27.88 kg/m2 Comm on [facility] oximetry 2021-04-03 13:40:00 94 % Commo n [facility] blood pressure systolic 2021-04-03 13:40:00 97 mm[Hg] [facility] blood pressure diastolic 2021-04-03 13:40:00 54 mm[Hg] [facility] Encounters Start Date/Time End Date/Time Encounter Type Admission Type Attending [facility] Care Department Encounter ID Source 2024-04-09 13:34:01 Outpatient Deyanira Valdez [facility] ST[facility] [id number] [facility] 2021-11-15 13:25:55 Outpatient Mauricio Colmenares [facility] ST[facility] [id number] [facility] 2021-11-15 13:14:16 Outpatient Mauricio Colmenares [facility] ST[facility] [id number] [facility] 2021-07-05 00:00:00 2021-07-05 00:00:00 (TEL) [facility] ST[facility] [id number] [facility] 2021-05-09 00:00:00 2021-05-09 00:00:00 (ESTPT) Establishe d Patient [facility]LMLC ST[facility]C [id number] [facility] 2021-05-04 00:00:00 2021-05-04 00:00:00 OFFICE VISIT EST PT LEVEL 3 [facility] ST[facility]C [id number] [facility] 2021-05-02 00:00:00 2021-05-02 00:00:00 OFFICE VISIT EST PT LEVEL 3 [facility] ST[facility]C [id number] [facility] 2021-04-18 00:00:00 2021-04-18 00:00:00 (TEL) STLMLC STLMLC [id number] [facility] 2021-04-03 00:00:00 2021-04-03 00:00:00 OFFICE VISIT NEW PT LEVEL 3 [facility]C STLMLC [id number] [facility]
[2024-10-13 22:19] LABS: Absolute Basophils 0.1 K/uL (0-0.5); Absolute Eosinophils 0.3 K/uL (0-0.5); Absolute Lymphocytes (CBC) 2.5 K/uL (0.7-4.9); Absolute Neutrophil 5.1 K/uL (1.8-8.0); Basophils % 0.6 % (0-1.3); Eosinophils % 2.9 % (0-4.4); Hematocrit 38.9 % (39.6-49.0); Hemoglobin 12.8 g/dL (13.6-17.9); Lymphocytes % 27.8 % (15.3-44.8); MCH 29.4 pg (27.0-35.0); MCHC 32.8 g/dL (32.0-36.0); MCV 89.6 fL (80-100); MPV 7.1 fL (7.6-11.3); Monocytes % 11.1 % (3.3-12.3); Neutrophils % 57.6 % (41.7-73.7); Platelets 298 thou/uL (152-406); RBC Red Blood Cell Count 4.34 M/uL (4.33-5.43); Red Cell Distribution Width 13.8 % (12.1-15.2)
[2024-10-13 22:26] LABS: PT Prothrombin Time 11.7 SECONDS (9.4-12.5); Protime INR 1.05
--- NOTE | 2024-10-13 22:36 | RAD REPORT ---
Procedure: Chest Single View HISTORY: Syncope COMPARISON: September 2024 FINDINGS: The lungs appear clear of acute infiltrate. No significant pleural effusion noted. The heart is normal size. IMPRESSION: No acute abnormality is displayed.
[2024-10-13 22:39] LABS: Albumin/Globulin Ratio 0.7 (1.1-1.8); Anion Gap 9.4 mEq/L (5.0-15.0); Bilirubin Direct 0.2 mg/dL (0-0.2); Bilirubin Indirect, Calculated 0.3 mg/dL (0.2-0.8); Bilirubin Total 0.5 mg/dL (0.2-1.0); Globulin 4.4 g/dL (2.3-3.5); Magnesium 2.1 mg/dL (1.6-2.4); Potassium 3.4 mEq/L (3.5-5.1); Protein, Total 7.4 g/dL (6.4-8.2); Troponin High Sensitivity 17.9 pg/mL (<58.9)
[2024-10-13] MEDS ORDERED: D5 0.9 NS 1,000 ML IV ONE (23:05)
--- NOTE | 2024-10-14 00:46 | EDPHYS ---
Physician Documentation [facility] Name: Tomas Braga Age: 79 yrs Sex: Male : 1945 Arrival Date: 10/13/2024 Time: 21:51 Bed 4 Private MD: ED Physician Grupo Sherwood HPI: 10/13 21:58 This 79 yrs old Male presents to ER via Unassigned with complaints of Low sp4 Blood Sugar, Fall Injury. 21:58 79-year-old male presents with blood sugar over 19 at home. Patient had syncopal sp4 episode at home. Patient resides by himself. EMS administered 1 amp of D50. Last blood sugar 117.. 10/14 22:57 Patient presents with EMS for apparent syncopal episode at home associated with sp4 hypoglycemia. Patient states he has administered insulin at home but not sure what dose. Historical: - Allergies: 10/13 22:20 shrimp; al5 22:20 Iodine; al5 - Home Meds: 22:20 Insulin Glargine Sub-Q [Active]; aspirin 81 mg oral tablet,chewable [Active]; al5 Mitochondrial Energy Booster [Active]; Humalog Sub-Q [Active]; gabapentin Oral [Active]; carvedilol Oral [Active]; Famotidine Oral [Active]; atorvastatin Oral [Active]; - PMHx: 22:20 Diabetes - NIDDM; Hyperlipidemia; Hypertensive disorder; al5 - Immunization history:: Adult Immunizations not up to date. - Infectious Disease History:: Denies. - Immunization history: Last tetanus immunization: - up to date. - Social history:: Smoking status: Patient denies any tobacco usage or history of. - Family history:: not pertinent. ROS: 10/14 22:57 Constitutional: Negative for fever, chills, and weight loss, positive for syncope and sp4 low blood sugar All other systems are negative, Exam: 22:57 Constitutional: This is a well developed, well nourished patient who is awake, alert, sp4 and in no acute distress. Signs of moderate dementia Head/Face: Normocephalic, atraumatic. Eyes: Pupils equal round and reactive to light, extra-ocular motions intact. Lids and lashes normal. Conjunctiva and sclera are not injected. Cornea within normal limits. Periorbital areas with no swelling, redness, or edema. ENT: Nares patent. No nasal discharge, no septal abnormalities noted. Tympanic membranes are normal and external auditory canals are clear. Oropharynx with no redness, swelling, or masses, exudates, or evidence of obstruction, uvula midline. Mucous membranes moist. Neck: Trachea midline, no thyromegaly or masses palpated, and no cervical lymphadenopathy. Supple, full range of motion without nuchal rigidity, or vertebral point tenderness. Chest/axilla: Normal chest wall appearance and motion. Nontender with no deformity. No lesions are appreciated. Cardiovascular: Regular rate and rhythm with a normal S1 and S2. No gallops, murmurs, or rubs. Normal PMI, no JVD. No pulse deficits. Respiratory: Lungs have equal breath sounds bilaterally, clear to auscultation and percussion. No rales, rhonchi or wheezes noted. No increased work of breathing, no retractions or nasal flaring. Abdomen/GI: Soft, with normal bowel sounds. No distension or tympany. No guarding or rebound. No evidence of tenderness throughout. Back: No spinal tenderness. No costovertebral tenderness. Skin: Warm, dry with normal turgor. Normal color with no rashes, no lesions, and no evidence of cellulitis. MS/ Extremity: Pulses equal, no cyanosis. Neurovascular intact. Full, normal range of motion. Neuro: Awake and alert, GCS 15, oriented to person, signs of moderate to dementia, cranial nerves II-XII grossly intact. Motor strength 5/5 in all extremities. Sensory grossly intact. 22:57 ECG was reviewed by the Attending Physician. EKG at sinus rhythm with first-degree AV block left axis deviation. Vital Signs: 10/13 22:20 BP 140 / 90; Pulse 68; Resp 18; Temp 98.3; Pulse Ox 100% on R/A; Weight 72.57 kg; al5 Height 5 ft. 7 in. ; Pain 0/10; 22:30 BP 144 / 90; Pulse 66; Resp 18; Pulse Ox 100% on R/A; al5 23:00 BP 154 / 87; Pulse 65; Resp 16; Pulse Ox 100% on R/A; al5 10/14 00:00 BP 152 / 88; Pulse 67; Resp 16; Pulse Ox 99% on R/A; al5 00:30 BP 151 / 83; Pulse 63; Resp 15; Pulse Ox 100% on R/A; al5 01:00 BP 102 / 90; Pulse 68; Resp 16; Pulse Ox 100% on R/A; al5 01:30 BP 136 / 76; Pulse 65; Resp 16; Pulse Ox 100% on R/A; al5 02:39 BP 167 / 74; Pulse 64 MON; Resp 20 S; Pulse Ox 99% on R/A; aa10 10/13 22:20 Body Mass Index 25.06 (72.57 kg, 170.18 cm) al5 02:39 Normal Sinus Rhythm aa10 10/13 22:20 Pain Scale: Adult al5 Blade Coma Score: 10/13 22:20 Eye Response: spontaneous(4). Motor Response: obeys commands(6). Verbal Response: al5 oriented(5). Total: 15. 10/14 22:57 Eye Response: spontaneous(4). Motor Response: obeys commands(6). Verbal Response: sp4 oriented(5). Total: 15. Trauma Score (Adult): 10/13 22:20 Eye Response: spontaneous(1); Verbal Response: oriented(1); Motor Response: obeys al5 commands(2); Systolic BP: > 89 mm Hg(4); Respiratory Rate: 10 to 29 per min(4); Blade Score: 15; Trauma Score: 12 MDM: 22:00 Medical Screening Exam initiated sp4 22:00 Differential diagnosis: [place]'s syndrome, DKA, hyperglycemia, hyperthyroidism, sp4 hypoglycemic episode. Data reviewed: vital signs, nurses notes, EMS record, old medical records, lab test result(s), EKG, radiologic studies, plain films. 10/14 23:03 Consideration of Admission/Observation Patient was admitted/placed on observation. sp4 Escalation of care including admission/observation considered. Management of patient was discussed with the following: Hospitalist: Wicho MONTANEZ . ED course: Exam Date: 10/13/24 Procedure: Chest Single View HISTORY: Syncope COMPARISON: September 2024 FINDINGS: The lungs appear clear of acute infiltrate. No significant pleural effusion noted. The heart is normal size. IMPRESSION: No acute abnormality is displayed. . 10/13 21:57 Order name: Basic Metabolic Panel; Complete Time: 00:40 sp4 10/13 21:57 Order name: CBC with Diff; Complete Time: 00:40 sp4 10/13 21:57 Order name: LFT's; Complete Time: 00:40 sp4 10/13 21:57 Order name: Magnesium; Complete Time: 00:40 sp4 10/13 21:57 Order name: NT PRO-BNP; Complete Time: 00:40 sp4 10/13 21:57 Order name: PT-INR; Complete Time: 00:40 sp4 10/13 21:57 Order name: Troponin HS; Complete Time: 00:40 sp4 10/13 22:19 Order name: Glucose, Ancillary Testing; Complete Time: 00:40 EDMS 10/14 00:42 Order name: Glucose, Ancillary Testing; Complete Time: 01:07 EDMS 10/14 01:23 Order name: Urinalysis w/ reflexes EDMS 10/14 01:23 Order name: CBC with Automated Diff EDMS 10/14 01:23 Order name: CBC with Automated Diff EDMS 10/14 01:23 Order name: Comprehensive Metabolic Panel EDMS 10/14 01:23 Order name: Comprehensive Metabolic Panel EDMS 10/14 01:23 Order name: Magnesium EDMS 10/14 01:23 Order name: Magnesium EDMS 10/14 01:23 Order name: Phosphorus EDMS 10/14 01:23 Order name: Phosphorus EDMS 10/14 01:23 Order name: Troponin High Sensitivity EDMS 10/14 01:23 Order name: Troponin High Sensitivity EDMS 10/14 01:23 Order name: Troponin High Sensitivity EDMS 10/14 01:23 Order name: Troponin High Sensitivity EDMS 10/13 21:57 Order name: XRAY Chest (1 view); Complete Time: 00:40 sp4 10/13 21:57 Order name: EKG; Complete Time: 21:58 sp4 10/13 21:57 Order name: Cardiac monitoring; Complete Time: 23:28 sp4 10/13 21:57 Order name: EKG - Nurse/Tech; Complete Time: 23:27 sp4 10/13 21:57 Order name: IV Saline Lock; Complete Time: 22:17 sp4 10/13 21:57 Order name: Labs collected and sent; Complete Time: 22:17 sp4 10/13 21:57 Order name: O2 Per Protocol; Complete Time: 22:17 sp4 10/13 21:57 Order name: O2 Sat Monitoring; Complete Time: 22:17 sp4 EC/24 22:00 Rate is 64 beats/min. Rhythm is regular, Sinus Rhythm. Left axis deviation noted. MI sp4 interval is prolonged. QRS interval is normal. QT interval is normal. No Q waves. T waves are Normal. No ST changes noted. Clinical impression: No evidence of ischemia. Interpreted by me. Reviewed by me. Administered Medications: 23: Drug: D5-NS IV 1000 ml IV at 125 ml/hr continuous Route: IV; Rate: 125 ml/hr; Site: [facility] right hand; 10/14 01:23 Follow up: Response: No adverse reaction; IV Status: Infusion continued upon admission al5 Disposition Summary: 10/14/24 00:46 Hospitalization Ordered Notes: Hospitalization Status: Observation sp4 Provider: Maksim Sands sp4 Location: Telemetry/MedSurg (observation) sp4 Condition: Stable sp4 Problem: new sp4 Symptoms: have improved sp4 Bed/Room Type: Standard sp4 Room Assignment: 214(10/14/24 01:39) rv1 Diagnosis - Hypoglycemia secondary to Insulin, Syncope secondary to hypoglycemia sp4 Forms: - Medication Reconciliation Form sp4 - SBAR form sp4 - Leadership Thank You Letter sp4 Signatures: Dispatcher [employer] Nikki Gonzales rv1 Grupo Sherwood MD MD sp4 Khushbu Villasenor RN RN al5 Corrections: (The following items were deleted from the chart) 01:39 00:46 sp4 rv1
--- NOTE | 2024-10-14 00:46 | ER ---
Nurse's Notes [facility] Name: Tomas Braga Age: 79 yrs Sex: Male : 1945 Arrival Date: 10/13/2024 Time: 21:51 Bed 4 Private MD: Diagnosis: Hypoglycemia secondary to Insulin, Syncope secondary to hypoglycemia Presentation: 10/13 22:17 Chief complaint: EMS states: patient was found in recliner unresponsive by friend, al5 kitchen table toppled over. patient friend toned out EMS and when EMS arrived, patient was responsive but out of it. patient blood sugar was 19. D50 was given on scene. Care prior to arrival: Medication(s) given: D50, 1 amp, IV initiated. 20 GA, in the right hand, Glucose check: 117. Mechanism of Injury: Fall. Trauma event details: Injury occurred in the [facility], Injury occurred: at home. Injury occurred: October 13, 2024. 22:17 Acuity: FRITZ 3 al5 22:17 Method Of Arrival: EMS: [facility] al5 22:17 Coronavirus screen: At this time, the client does not indicate any symptoms associated al5 with coronavirus-19. Ebola Screen: No symptoms or risks identified at this time. Initial Sepsis Screen: Does the patient meet any 2 criteria? No. Patient's initial sepsis screen is negative. Does the patient have a suspected source of infection? No. Patient's initial sepsis screen is negative. Risk Assessment: Do you want to hurt yourself or someone else? Patient reports no desire to harm self or others. Onset of symptoms was October 13, 2024. Triage Assessment: 22:20 General: see trauma assessment. al5 Trauma Activation: Physician: ED Physician; Name: ; Notified At: ; Arrived At: Physician: General Surgeon; Name: ; Notified At: ; Arrived At: Physician: Radiology; Name: ; Notified At: ; Arrived At: Physician: Respiratory; Name: ; Notified At: ; Arrived At: Physician: Lab; Name: ; Notified At: ; Arrived At: 22:17 n/a al5 Historical: - Allergies: 22:20 shrimp; al5 22:20 Iodine; al5 - Home Meds: 22:20 Insulin Glargine Sub-Q [Active]; aspirin 81 mg oral tablet,chewable [Active]; al5 Mitochondrial Energy Booster [Active]; Humalog Sub-Q [Active]; gabapentin Oral [Active]; carvedilol Oral [Active]; Famotidine Oral [Active]; atorvastatin Oral [Active]; - PMHx: 22:20 Diabetes - NIDDM; Hyperlipidemia; Hypertensive disorder; al5 - Immunization history:: Adult Immunizations not up to date. - Infectious Disease History:: Denies. - Immunization history: Last tetanus immunization: - up to date. - Social history:: Smoking status: Patient denies any tobacco usage or history of. - Family history:: not pertinent. Screenin:20 Abuse screen: Denies threats or abuse. Denies injuries from another. Nutritional al5 screening: No deficits noted. Tuberculosis screening: No symptoms or risk factors identified. 22:20 [facility] ED Fall Risk Assessment (Adult) History of falling in the last 3 months, al5 including since admission Yes- physiologic fall (2 pts) Confusion or Disorientation No (0 pts) Intoxicated or Sedated No (0 pts) Impaired Gait No (0 pts) Mobility Assist Device Used No (0 pt) Altered Elimination No (0 pt) Score/Fall Risk Level 0 - 2 = Low Risk Oriented to surroundings, Maintained a safe environment, Hourly rounding (assess needs \T\ fall precautionary measures) done. Primary Survey: 22:20 NO uncontrolled hemorrhage observed. A: The client is awake and alert. The airway is al5 patent. The client is alert. Breathing/Chest: Spontaneous respiratory effort, equal unlabored respirations, breath sounds clear bilaterally, regular pattern, symmetrical chest rise and fall. Respiratory effort: spontaneous, unlabored. Circulation: No external hemorrhage present. Regular and strong central pulse, skin warm/dry/normal color. Skin color: pink, Skin temperature: warm, dry. Disability Pupils are equal, round, reactive to light and accommodation. Client is alert. Exposure/Environment: There is no evidence of uncontrolled external bleeding. No obvious injuries are noted at this time. A warming method has been applied: A warm blanket has been provided to the patient. 10/14 00:00 Reassessment Alertness and Airway: Awake and alert. The airway is patent. Airway Patent al5 Breathing: Spontaneous respiratory effort, equal unlabored respirations, breath sounds clear bilaterally, regular pattern with symmetrical chest rise and fall. Respiratory effort Spontaneous Unlabored Respiratory pattern Regular Circulation: No external hemorrhage noted. Regular and strong central pulse, skin warm/dry/normal color. Color [place] Temperature Warm Dry Disability: Pupils Pupils are equal, round, reactive to light and accomodation. Alert. Secondary Survey: 10/13 22:20 HEENT: No deficits noted. Gastrointestinal: No deficits noted. : No deficits noted. al5 Musculoskeletal: No deficits noted. Assessment: 22:20 General: Appears in no apparent distress. comfortable, Behavior is calm, cooperative. al5 Pain: Denies pain. Neuro: Level of Consciousness is awake, alert, obeys commands, Oriented to person, place, time, situation. EENT: No signs and/or symptoms were reported regarding the EENT system. Cardiovascular: Capillary refill < 3 seconds Patient's skin is warm and dry. Respiratory: Airway is patent Respiratory effort is even, unlabored, Respiratory pattern is regular, symmetrical. GI: Reports low blood sugar. : No signs and/or symptoms were reported regarding the genitourinary system. Derm: Skin is intact, Skin is pink, warm \T\ dry. normal. Musculoskeletal: No signs and/or symptoms reported regarding the musculoskeletal system. 23:00 Reassessment: Patient appears in no apparent distress at this time. Patient and/or al5 family updated on plan of care and expected duration. Pain level reassessed. Patient is alert, oriented x 3, equal unlabored respirations, skin warm/dry/pink. Patient states feeling better. Patient states symptoms have improved. 10/14 00:00 Reassessment: Patient appears in no apparent distress at this time. No changes from al5 previously documented assessment. Patient and/or family updated on plan of care and expected duration. Pain level reassessed. Patient is alert, oriented x 3, equal unlabored respirations, skin warm/dry/pink. 01:27 Reassessment: Patient appears in no apparent distress at this time. No changes from al5 previously documented assessment. Patient and/or family updated on plan of care and expected duration. Pain level reassessed. Patient is alert, oriented x 3, equal unlabored respirations, skin warm/dry/pink. 02:40 Reassessment: Patient appears in no apparent distress at this time. No changes from aa10 previously documented assessment. Patient and/or family updated on plan of care and expected duration. Pain level reassessed. Patient is alert, oriented x 3, equal unlabored respirations, skin warm/dry/pink. Vital Signs: 10/13 22:20 BP 140 / 90; Pulse 68; Resp 18; Temp 98.3; Pulse Ox 100% on R/A; Weight 72.57 kg; al5 Height 5 ft. 7 in. ; Pain 0/10; 22:30 BP 144 / 90; Pulse 66; Resp 18; Pulse Ox 100% on R/A; al5 23:00 BP 154 / 87; Pulse 65; Resp 16; Pulse Ox 100% on R/A; al5 10/14 00:00 BP 152 / 88; Pulse 67; Resp 16; Pulse Ox 99% on R/A; al5 00:30 BP 151 / 83; Pulse 63; Resp 15; Pulse Ox 100% on R/A; al5 01:00 BP 102 / 90; Pulse 68; Resp 16; Pulse Ox 100% on R/A; al5 01:30 BP 136 / 76; Pulse 65; Resp 16; Pulse Ox 100% on R/A; al5 02:39 BP 167 / 74; Pulse 64 MON; Resp 20 S; Pulse Ox 99% on R/A; aa10 10/13 22:20 Body Mass Index 25.06 (72.57 kg, 170.18 cm) al5 02:39 Normal Sinus Rhythm aa10 10/13 22:20 Pain Scale: Adult al5 Bern Coma Score: 10/13 22:20 Eye Response: spontaneous(4). Motor Response: obeys commands(6). Verbal Response: al5 oriented(5). Total: 15. 10/14 22:57 Eye Response: spontaneous(4). Motor Response: obeys commands(6). Verbal Response: sp4 oriented(5). Total: 15. Trauma Score (Adult): 10/13 22:20 Eye Response: spontaneous(1); Verbal Response: oriented(1); Motor Response: obeys al5 commands(2); Systolic BP: > 89 mm Hg(4); Respiratory Rate: 10 to 29 per min(4); Blade Score: 15; Trauma Score: 12 ED Course: 21:52 Patient arrived in ED. jj6 21:52 Grupo Sherwood MD is Attending Physician. sp4 21:58 Langhorst, Khushbu, RN is Primary Nurse. al5 22:10 Initial lab(s) drawn, by me, sent to lab. sa1 22:15 Blood Glucose was 87, notified nurse. sa1 22:17 Arm band placed on right wrist. Patient placed in the treatment room, on a stretcher, al5 on pulse oximetry. 22:20 Triage completed. al5 22:20 No provider procedures requiring assistance completed. Maintain EMS IV. Dressing al5 intact. Good blood return noted. Site clean \T\ dry. Gauge \T\ site: 20G R hand. 22:20 Thermoregulation: warm blanket given to patient. al5 22:20 Patient has correct armband on for positive identification. Bed in low position. Call al5 light in reach. Side rails up X2. Patient maintains SpO2 saturation greater than 95% on room air. 22:20 Provided Education on: plan of care. al5 22:21 XRAY Chest (1 view) In Process Unspecified. EDMS 22:23 Basic Metabolic Panel Sent. sa1 22:23 CBC with Diff Sent. sa1 22:23 LFT's Sent. sa1 22:23 Magnesium Sent. sa1 22:23 NT PRO-BNP Sent. sa1 22:24 Troponin HS Sent. sa1 22:24 PT-INR Sent. sa1 23:03 EKG done, by ED staff. sa1 10/14 00:45 Maksim Sands MD is Hospitalizing Provider. sp4 02:51 Troponin High Sensitivity Sent. aa10 02:58 Patient admitted, IV remains in place. al5 Administered Medications: 10/13 23:27 Drug: D5-NS IV 1000 ml IV at 125 ml/hr continuous Route: IV; Rate: 125 ml/hr; Site: al5 right hand; 10/14 01:23 Follow up: Response: No adverse reaction; IV Status: Infusion continued upon admission al5 Medication: 10/13 22:59 VIS not applicable for this client. al5 Intake: 22:20 n/a al5 Outcome: 10/14 00:00 Patient's length of stay in the Emergency Department was greater than 2 hours. al5 admittedPatient's length of stay extended due to 00:46 Decision to Hospitalize by Provider. sp4 02:57 Admitted to Med/surg accompanied by tech, via wheelchair, room 214, with chart, al5 02:57 Condition: stable 02:57 Instructed on the need for admit, 02:59 Patient left the ED. al5 Signatures: Dispatcher [employer] EDSasha [id number] Grupo Sherwood MD MD sp4 Khushbu Villasenor RN RN al5 Sultan Kenn sa1 Chela Grubbs RN RN aa10
[2024-10-14] MEDS ORDERED: ACETAMINOPHEN 325 MG TABLET PO PRN (01:18)
[2024-10-14] MEDS ORDERED: ONDANSETRON 4 MG/2 ML VIAL IV PRN (01:18)
--- NOTE | 2024-10-14 01:18 | P.HP ---
Certification for Inpatient Patient admitted to: Observation With expected LOS: <2 Midnights Practitioner: I am a practitioner with admitting privileges, knowledge of patient current condition, hospital course, and medical plan of care. Services: Services provided to patient in accordance with Admission requirements found in Title 42 Section 412.3 of the Code of Federal Regulations Patient History Date of Service: 10/14/24 Reason for admission: Hypoglycemia History of Present Illness: 79 yrs old with past medical history of diabetes, hypertension, hyperlipidemia brought to ER with low blood sugar and syncopal episode at home. Patient lives alone and he administered insulin by himself unknown amount without eating much. Patient was found to be in hypoglycemic with a sugar of 19. EMS gave D50 and blood sugar came to 117. Patient denies any chest pain or shortness of breath. No fever or chills. Patient has a history of dementia. Patient was assessed in the ER was admitted for further management of hypoglycemia Allergies shellfish derived Allergy (Severe, Verified 12/04/21 11:15) Nausea/Vomiting Home medications list reviewed: Yes Home Medications: Atorvastatin Calcium [Lipitor*] 20 mg PO BEDTIME 05/19/14 Insulin Glargine,Hum.rec.anlog [Toujeo Solostar] 65 unit SQ BEDTIME 01/23/17 Insulin Lispro [Humalog] 16 unit SQ BIDWM 01/23/17 Aspirin [Aspirin EC 81 MG] 81 mg PO DAILY 12/04/21 Famotidine [Pepcid] 40 mg PO DAILY 12/04/21 Tamsulosin HCl 0.4 mg PO BEDTIME 12/04/21 Topiramate [Topamax] 25 mg PO BID 12/04/21 carvediloL [Coreg] 6.25 mg PO BIDWM 12/04/21 Gabapentin [Neurontin] 100 mg PO DAILY 10/14/24 - Past Medical/Surgical History Diabetic: Yes Past Medical History: Reviewed- Non-Contributory -: HTN -: increased cholesterol Past Surgical History: Reviewed- Non-Contributory -: appendectomy -: cataract - Family History Family History: Reviewed- Non-Contributory - Social History Smoking Status: Never smoker Alcohol use: No CD- Drugs: No Caffeine use: Yes Review of Systems 10-point ROS is otherwise unremarkable Physical Examination - Vital Signs Temperature: 98.3 F Blood Pressure: 145/90 Pulse: 82 Respirations: 18 Pulse Ox (%): 94 - Physical Exam General: Alert, In no apparent distress HEENT: Atraumatic, Normocephalic Neck: Supple Respiratory: Clear to auscultation bilaterally, Normal air movement Cardiovascular: Normal pulses, Regular rate/rhythm Capillary refill: <2 Seconds Gastrointestinal: Soft and benign, W/out hepatosplenomegaly Musculoskeletal: No clubbing, No swelling Integumentary: No rashes Neurological: Normal speech, Normal strength at 5/5 x4 extr Lymphatics: No axilla or inguinal lymphadenopathy - Studies Laboratory Data (last 24 hrs) 10/13/24 10/13/24 10/13/24 22:10 22:10 22:10 WBC 8.90 Hgb 12.8 L Hct 38.9 L Plt Count 298 PT 11.7 INR 1.05 Sodium 135 L Potassium 3.4 L BUN 21 H Creatinine 1.62 H Glucose 92 Magnesium 2.1 Total Bilirubin 0.5 AST 23 ALT 24 Alkaline Phosphatase 104 Assessment and Plan - Plan Recurrent hypoglycemia Will watch closely Will hold antidiabetic medications Continue D5 half NS Hypertension Antihypertensives titrated Continue home medications and titrate as needed Hyperlipidemia Continue statin Acute kidney injury Monitor renal parameters Electrolytes monitor and replace accordingly IV hydration Diabetes Insulin sliding scale Accu-Chek before every meal and at bedtime GI/DVT prophylaxis Advanced directive full code Discharge Plan: Home Plan to discharge in: 24 Hours - Advance Directives Does patient have a Living Will: No Does patient have a Durable POA for Healthcare: No - Code Status/Comfort Care Code Status: Full Code Time Spent Managing Pts Care (In Minutes): 48
[2024-10-14] MEDS: D5 0.45 NS 1,000 ML IV SCH (03:32)
[2024-10-14] MEDS: POTASSIUM CL SA 10 MEQ TAB PO ONE (06:38)
[2024-10-14] MEDS: FAMOTIDINE 20 MG TAB PO SCH (09:26)
[2024-10-14] MEDS: ASPIRIN EC 81 MG TAB PO SCH (09:27)
[2024-10-14] MEDS: GABAPENTIN 100 MG CAP PO SCH (09:27)
[2024-10-14] MEDS: TOPIRAMATE 25 MG TAB PO SCH (09:27)
[2024-10-14] MEDS: carvediloL 6.25 MG TAB PO SCH (09:27)
[2024-10-14 09:54] LABS: Specific Gravity 1.005 (1.005-1.030); Sqamous Epithelial <5 /HPF (None Seen); Urine Bacteria None Seen /HPF (<20); Urine Bilirubin NEGATIVE (Negative); Urine Blood Negative (Negative); Urine Clarity Turbid (Clear); Urine Color Light-Yellow (Yellow); Urine Culture Reflex Order REFLEXED; Urine Glucose NEGATIVE (Negative); Urine Ketones NEGATIVE (Negative); Urine Microscopic Reflex YN ORDER UMIC; Urine Nitrite NEGATIVE (Negative); Urine Protein NEGATIVE (Negative); Urine RBC <5 /HPF (None Seen); Urine Urobilinogen Normal (Normal); Urine pH 6.5 (5.0-7.0)
[2024-10-14] MEDS: FLU (Fluarix Triv) TS24-25(6MOS UP)/PF 45 MCG/0.5 ML Syringe IM ONE (12:00)
[2024-10-14] MEDS: LACTULOSE 20 GM/30 ML UCUP PO SCH (15:59)
[2024-10-14] MEDS: TAMSULOSIN 0.4 MG SR CAP PO SCH (19:40)
[2024-10-14] MEDS: ATORVASTATIN 20 MG TAB PO SCH (19:40)
[2024-10-15] MEDS ORDERED: D10W 125 ML IV PRN (00:06)
[2024-10-15] MEDS ORDERED: GLUCAGON 1 MG/VIAL IM PRN (00:06)
[2024-10-15] MEDS: INSULIN REGULAR (HUMAN) 100 UNIT/ML SQ SCH ×2 (00:47→21:57)
[2024-10-15 05:51] LABS: Absolute Eosinophils 0.2 K/uL (0-0.5); Absolute Lymphocytes (CBC) 2.9 K/uL (0.7-4.9); Absolute Monocytes 0.8 K/uL (0.1-1.3); Absolute Neutrophil 4.1 K/uL (1.8-8.0); Basophils % 0.5 % (0-1.3); Eosinophils % 3.1 % (0-4.4); Hematocrit 35.9 % (39.6-49.0); Hemoglobin 12.2 g/dL (13.6-17.9); MCH 30.3 pg (27.0-35.0); MCHC 33.9 g/dL (32.0-36.0); MCV 89.4 fL (80-100); MPV 6.8 fL (7.6-11.3); Monocytes % 9.8 % (3.3-12.3); Neutrophils % 50.6 % (41.7-73.7); Platelets 297 thou/uL (152-406); RBC Red Blood Cell Count 4.02 M/uL (4.33-5.43)
[2024-10-15 06:21] LABS: Albumin 2.7 g/dL (3.4-5.0); Albumin/Globulin Ratio 0.7 (1.1-1.8); Anion Gap 5.6 mEq/L (5.0-15.0); Bilirubin Total 0.4 mg/dL (0.2-1.0); Globulin 3.9 g/dL (2.3-3.5); Magnesium 2.1 mg/dL (1.6-2.4); Phosphorus 2.5 mg/dL (2.5-4.9); Potassium 3.6 mEq/L (3.5-5.1); Protein, Total 6.6 g/dL (6.4-8.2)
[2024-10-15] MEDS: POTASSIUM CL SA 10 MEQ TAB PO ONE (09:09)
[2024-10-15] MEDS: NA CHLORIDE 0.9% 1,000 ML IV SCH (11:37)
[2024-10-16 04:58] LABS: Hematocrit 34.7 % (39.6-49.0); Hemoglobin 11.4 g/dL (13.6-17.9); MCH 29.8 pg (27.0-35.0); MCHC 32.8 g/dL (32.0-36.0); MCV 90.8 fL (80-100); MPV 7.7 fL (7.6-11.3); Platelets 248 thou/uL (152-406); RBC Red Blood Cell Count 3.82 M/uL (4.33-5.43); Red Cell Distribution Width 13.8 % (12.1-15.2)
[2024-10-16 05:14] LABS: Albumin 2.6 g/dL (3.4-5.0); Phosphorus 1.7 mg/dL (2.5-4.9)
[2024-10-16 06:38] VITALS: BMI 25.0
--- NOTE | 2024-10-16 07:43 | P.DS ---
Admission Date: 10/15/24 Discharge Date: 10/17/24 Reason for Admission: Hypoglycemia Brief History of Present Illness: 79 yrs old with past medical history of diabetes, hypertension, hyperlipidemia brought to ER with low blood sugar and syncopal episode at home. Patient lives alone and he administered insulin by himself unknown amount without eating much. Patient was found to be in hypoglycemic with a sugar of 19. EMS gave D50 and blood sugar came to 117. Patient denies any chest pain or shortness of breath. No fever or chills. Patient has a history of dementia. Patient was assessed in the ER was admitted for further management of hypoglycemia - Physical Exam General: Alert, In no apparent distress HEENT: Atraumatic, Normocephalic Neck: Supple Respiratory: Clear to auscultation bilaterally, Normal air movement Cardiovascular: Normal pulses, Regular rate/rhythm Capillary refill: <2 Seconds Gastrointestinal: Soft and benign, W/out hepatosplenomegaly Musculoskeletal: No clubbing, No swelling Integumentary: No rashes Neurological: Normal speech, Normal strength at 5/5 x4 extr Lymphatics: No axilla or inguinal lymphadenopathy Hospital Course: 79 yrs old with past medical history of diabetes, hypertension, hyperlipidemia brought to ER with low blood sugar and syncopal episode at home. Patient lives alone and he administered insulin by himself unknown amount without eating much. Patient was found to be in hypoglycemic with a sugar of 19. EMS gave D50 and blood sugar came to 117. Patient denies any chest pain or shortness of breath. No fever or chills. Patient has a history of dementia. Patient was assessed in the ER was admitted for further management of hypoglycemia. Insulin was held, he was noted to be hyptensive, IVF were adm inistered. BP improved. History of falls, he was seen by PT. plan to discharge home with [facility] with PT, SN. Daughter stated she will be staying with him. Plan to discharge home with home health, rolling walker ordered. Seen by PT while inpatient Assessment Dizziness improved with IV fluids, meclizine, MRI of the brain no acute abnormality Recurrent hypoglycemia improved with holding Hypotension adjust BP meds improved with IV fluid Antihypertensives instructed tokeep bp log daily Hyperlipidemia Continue statin Acute kidney injury IV hydration Diabetes Insulin strict BG monitoring after discharge Continue home medicines as previously prescribed GOAL: Clear understanding of disease process INSTRUCTIONS: Physician Discharge Instructions: -Follow-up with PCP in 1 to 2 weeks -Please call Dr. Barboza at [phone] if any questions regarding hospital stay -Please call nursing station at [phone] if any nursing or medication questions -Return to the emergency room if symptoms worsen Diet: ADA, low sodium Activity: Fall precautions <Qiana Amaro - Last Filed: 10/19/24 12:20> Admission Date: 10/15/24 Discharge Date: 10/17/24 Hospital Course: Chart has been reviewed. Events of the last 24 hours have been noted. Case discussed with JUD. I performed a substantial part of the MDM during this patient's care today. I personally made or approved the documented management plan and acknowledge its risk of complications. I agree with the findings and documentation provided in the JUD's notes Patient blood sugars are stable. Adjusted patient's insulin dosage. Advised patient not to take any insulin unless blood sugars greater than 250. Patient's clinical symptoms have improved and patient ambulated throughout the nurses station with physical therapy. At this time, patient is stable for discharge home. <Sarai Barboza - Last Filed: 10/20/24 05:17> Disposition: DC HOME/HOME HEALTH CARE Discharge Condition: GOOD Vital Signs/Physical Exam: Temp Pulse Resp BP Pulse Ox 97.8 F 77 16 138/63 95 10/16/24 04:00 10/16/24 04:00 10/16/24 04:00 10/16/24 04:00 10/16/24 04:00 Laboratory Data at Discharge: WBC 8.70 thou/uL (4.3-10.9) 10/16/24 03:59 Hgb 11.4 g/dL (13.6-17.9) L 10/16/24 03:59 Hct 34.7 % (39.6-49.0) L 10/16/24 03:59 Plt Count 248 thou/uL (152-406) 10/16/24 03:59 PT 11.7 SECONDS (9.4-12.5) 10/13/24 22:10 INR 1.05 10/13/24 22:10 Sodium 140 mEq/L (136-145) 10/16/24 03:59 Potassium 4.0 mEq/L (3.5-5.1) 10/16/24 03:59 BUN 19 mg/dL (7-18) H 10/16/24 03:59 Creatinine 1.64 mg/dL (0.70-1.30) H 10/16/24 03:59 Glucose 153 mg/dL (74-106) H 10/16/24 03:59 Phosphorus 1.7 mg/dL (2.5-4.9) L 10/16/24 03:59 Magnesium 2.1 mg/dL (1.6-2.4) 10/15/24 05:28 Total Bilirubin 0.4 mg/dL (0.2-1.0) 10/15/24 05:28 AST 25 U/L (15-37) 10/15/24 05:28 ALT 23 U/L (16-61) 10/15/24 05:28 Alkaline Phosphatase 99 U/L (45-117) 10/15/24 05:28 <Qiana Amaro - Last Filed: 10/19/24 12:20> Vital Signs/Physical Exam: Temp Pulse Resp BP Pulse Ox 97.9 F 78 16 118/56 L 92 10/19/24 12:30 10/19/24 12:30 10/19/24 12:30 10/19/24 12:30 10/19/24 12:30 Laboratory Data at Discharge: WBC 8.70 thou/uL (4.3-10.9) 10/16/24 03:59 Hgb 11.4 g/dL (13.6-17.9) L 10/16/24 03:59 Hct 34.7 % (39.6-49.0) L 10/16/24 03:59 Plt Count 248 thou/uL (152-406) 10/16/24 03:59 PT 11.7 SECONDS (9.4-12.5) 10/13/24 22:10 INR 1.05 10/13/24 22:10 Sodium 140 mEq/L (136-145) 10/17/24 04:49 Potassium 3.7 mEq/L (3.5-5.1) 10/17/24 04:49 BUN 22 mg/dL (7-18) H 10/17/24 04:49 Creatinine 1.69 mg/dL (0.70-1.30) H 10/17/24 04:49 Glucose 195 mg/dL (74-106) H 10/17/24 04:49 Phosphorus 2.8 mg/dL (2.5-4.9) 10/17/24 04:49 Magnesium 2.1 mg/dL (1.6-2.4) 10/15/24 05:28 Total Bilirubin 0.4 mg/dL (0.2-1.0) 10/15/24 05:28 AST 25 U/L (15-37) 10/15/24 05:28 ALT 23 U/L (16-61) 10/15/24 05:28 Alkaline Phosphatase 99 U/L (45-117) 10/15/24 05:28 <Sarai Barboza - Last Filed: 10/20/24 05:17> Diet: ADA Activity: Fall precautions Time spent managing pt's care (in minutes): 45 <Qiana Amaro - Last Filed: 10/19/24 12:20> <Sarai Barboza - Last Filed: 10/20/24 05:17> Home Medications: Atorvastatin Calcium [Lipitor*] 20 mg PO BEDTIME 05/19/14 Aspirin [Aspirin EC 81 MG] 81 mg PO DAILY 12/04/21 Famotidine [Pepcid*] 40 mg PO DAILY 12/04/21 Tamsulosin HCl 0.4 mg PO BEDTIME 12/04/21 Topiramate [Topamax*] 25 mg PO BID 12/04/21 carvediloL [Coreg] 6.25 mg PO BIDWM 12/04/21 Gabapentin [Neurontin*] 100 mg PO DAILY 10/14/24 Insulin Glargine,Hum.rec.anlog [Toujeo Solostar] 10 unit SQ BEDTIME #2 syr 10/15/24 Meclizine HCl 25 mg PO TID PRN 30 Days #90 tab 10/16/24 New Medications: Meclizine HCl 25 mg PO TID PRN 30 Days #90 tab PRN Reason: Dizziness Insulin Glargine,Hum.rec.anlog [Toujeo Solostar] 10 unit SQ BEDTIME #2 syr Physician Discharge Instructions: PROBLEM: Hypoglycemia GOAL: Clear understanding of disease process INSTRUCTIONS: Follow-up with PCP in 1 week -ENT.Neurology for Dizziness -Please call Dr. Barboza at [phone] if any questions regarding hospital stay -Please call nursing station at [phone] if any nursing or medication questions -Return to the emergency room if symptoms worsen Diet: ADA Activity: Fall precautions 79 yrs old with past medical history of diabetes, hypertension, hyperlipidemia brought to ER with low blood sugar and syncopal episode at home. Patient lives alone and he administered insulin by himself unknown amount without eating much. Patient was found to be in hypoglycemic with a sugar of 19. EMS gave D50 and blood sugar came to 117. Patient denies any chest pain or shortness of breath. No fever or chills. Patient has a history of dementia. Patient was assessed in the ER was admitted for further management of hypoglycemia. Insulin was held, he was noted to be hyptensive, IVF were administered. BP improved. History of falls, he was seen by PT. plan to discharge home with [facility] with PT, SN. Daughter stated she will be staying with him. Plan to discharge home with home health, rolling walker ordered. Seen by PT while inpatient Assessment Dizziness improved with IV fluids, meclizine, MRI of the brain no acute abnormality Recurrent hypoglycemia improved with holding insulin while inpatient, Glucose improved Hypotension - resolved, improved with IV fluid Antihypertensives resume home meds Hyperlipidemia Continue statin Acute kidney injury improved with IV hydration Diabetes Insulin strict BG monitoring after discharge Continue home medicines as previously prescribed GOAL: Clear understanding of disease process Diet: ADA, low sodium Activity: Fall precautions Followup: Ronald Brasher MD [ASSOCIATE-ACTIVE - CAN ADMIT] - Mauricio Colmenares MD [Primary Care Provider] - Nica Lebron MD [ACTIVE - CAN ADMIT] -
[2024-10-16] MEDS ORDERED: LACTULOSE 20 GM/30 ML UCUP PO PRN (07:54)
[2024-10-16] MEDS: POTASS/SODIUM PHOSPHATE 1 PKT POWD.PACK PO SCH ×2 (08:40→20:52)
[2024-10-16] MEDS ORDERED: POTASSIUM PHOS IN 0.9 % NACL 15 MMOL/250 ML BAG IV ONE (09:00)
[2024-10-16] MEDS: MECLIZINE HCL 12.5 MG TAB PO SCH (10:12)
--- NOTE | 2024-10-16 11:53 | RAD REPORT ---
EXAMINATION: US CAROTID DUPLEX CLINICAL INDICATION: , 79 years old. dizziness. TECHNIQUE: Real-time grayscale, color flow and spectral Doppler sonographic images were obtained of t extracranial carotid system using a linear transducer. [id number]. COMPARISON: No prior exam. FINDINGS: RIGHT: Common carotid artery: 62 cm/s Internal carotid artery: 108 cm/s External carotid artery: 54 cm/s Right ICA/CCA ratio: 1.7 Plaque Mild Calcified and noncalcified Vertebral artery Antegrade LEFT: Common carotid artery: 111 cm/s Internal carotid artery: 106 cm/s External carotid artery: 104 cm/s lEFT ICA/CCA ratio: 1.1 Plaque Moderate Calcified Vertebral artery Antegrade IMPRESSION: No hemodynamically significant stenosis (greater than 50%) within the extracranial internal carotid a alina.
--- NOTE | 2024-10-16 13:42 | EKG ---
Test Date: 2024-10-13 Test Time: 23:01:15 Rn Hematology: MEASUREMENT RESULTS: Intervals: Rate: 64 CO: 248 QRSD: 110 QT: 428 QTc: 441 [place]: P: 83 CO: 248 QRS: -68 T: 45 INTERPRETIVE STATEMENTS: Sinus rhythm with 1st degree AV block Left axis deviation Cannot rule out Anterior infarct, age undetermined Abnormal ECG Compared to ECG 09/27/2024 15:16:08 Myocardial infarct finding now present Ventricular premature complex(es) no longer present Electronically Signed On 10-16-24 13:37:22 [employer] by Fred Howard
--- NOTE | 2024-10-16 17:03 | RAD REPORT ---
EXAMINATION: MRI BRAIN WITHOUT CONTRAST CLINICAL INDICATION: Male, 79 years old.[facility] N cva/vertigo TECHNIQUE: Multiplanar multisequence MR images of the brain were obtained without intravenous contras t. Unless otherwise specified, incidental findings do not require dedicated imaging follow-up. COMPARISON: 09/27/[address] FINDINGS: INTRACRANIAL: Midline structures are unremarkable. Diffusion-weighted images show no acute or early subacute infarction. There is mild brain atrophy with mildT2/FLAIR hyperintensities in the periventricular and deep white matter regions, likely representing chronic microvascular ischemic elizabeth nges. There is no mass effect or midline shift. No abnormal extraaxial fluid collection. VASCULATURE: Normal signal voids in the larger intracranial arteries and dural venous sinuses. SINUSES: The paranasal sinuses and mastoid air cells are predominantly clear. BONE: The marrow signal pattern is within normal limits. IMPRESSION: No significant intracranial abnormalities.
[2024-10-16 21:50] VITALS: O2SAT 99
[2024-10-17] MEDS: HYDRALAZINE HCL 20 MG/ML VIAL IV PRN (00:29)
[2024-10-17 05:32] LABS: Albumin 2.5 g/dL (3.4-5.0); Anion Gap 8.7 mEq/L (5.0-15.0); Phosphorus 2.8 mg/dL (2.5-4.9); Potassium 3.7 mEq/L (3.5-5.1)
[2024-10-17 08:17] LABS: C-Peptide 1.92 ng/mL (0.80-3.85); Insulin 27.9 uIU/mL (<=18.4)
[2024-10-17 08:31] VITALS: BP 118/56; TEMP 97.9
[2024-10-17] MEDS: POTASSIUM CL SA 10 MEQ TAB PO ONE (08:31)
--- NOTE | 2024-10-19 12:30 | P.PN ---
Subjective Date of Service: 10/19/24 Chief Complaint: Hypoglycemia reports dizziness with ambulation <Qiana Amaro - Last Filed: 10/19/24 12:30> Date of Service: 10/15/24 <Sarai Barboza - Last Filed: 10/20/24 05:09> Review of Systems 10-point ROS is otherwise unremarkable <Qiana Amrao - Last Filed: 10/19/24 12:30> Physical Examination - Vital Signs Temperature: 97.9 F Blood Pressure: 118/56 Pulse: 78 Respirations: 16 Pulse Ox (%): 92 - Physical Exam General: Alert, In no apparent distress, Oriented x2, Other (dementia) HEENT: Atraumatic, Normocephalic Neck: Supple, 2+ carotid pulse no bruit Respiratory: Clear to auscultation bilaterally, Normal air movement Cardiovascular: Normal pulses, Regular rate/rhythm, Normal S1 S2 Gastrointestinal: Normal bowel sounds, Soft and benign Musculoskeletal: No clubbing, No swelling, Other (unsteady gait) Integumentary: No breakdown, No significant lesion Neurological: Normal speech, Normal tone, Sensation intact, Cranial nerves 3-12 intact <iQana Amaro - Last Filed: 10/19/24 12:30> Assessment And Plan - Plan Assessment and Plan - Plan Recurrent hypoglycemia Will watch closely Will hold antidiabetic medications Continue D5 half NS orthostatic hypotension dizziness unsteadt gait ortho vs, ns given, meclizine mri orderedpt eval Hypertension Antihypertensives titrated Continue home medications and titrate as needed Hyperlipidemia Continue statin Acute kidney injury Monitor renal parameters Electrolytes monitor and replace accordingly IV hydration Diabetes Insulin sliding scale Accu-Chek before every meal and at bedtime GI/DVT prophylaxis Advanced directive full code Discharge Plan: Home Plan to discharge in: 24 Hours - Advance Directives Does patient have a Living Will: No Does patient have a Durable POA for Healthcare: No - Code Status/Comfort Care Code Status: Full Code Time Spent Managing Pts Care (In Minutes): 35 Discharge Plan: Home - Code Status/Comfort Care Code Status: Full Code Critical Care: No Time Spent Managing PTS Care (In Minutes): 35 <Qiana Amaro - Last Filed: 10/19/24 12:30> Date of Service: 10/15/24 Chart has been reviewed. Events of the last 24 hours have been noted. Case discussed with JUD. I performed a substantial part of the MDM during this patient's care today. I personally made or approved the documented management plan and acknowledge its risk of complications. I agree with the findings and documentation provided in the JUD's notes <Sarai Barboza - Last Filed: 10/20/24 05:09>
--- NOTE | 2024-10-19 12:34 | P.PN ---
Date of Service: 10/16/24 Subjective Chief Complaint: Hypoglycemia reports dizziness with ambulation Review of Systems 10-point ROS is otherwise unremarkable Physical Examination - Vital Signs reviewed - Physical Exam General: Alert, In no apparent distress, Oriented x2, Other (dementia) HEENT: Atraumatic, Normocephalic Neck: Supple, 2+ carotid pulse no bruit Respiratory: Clear to auscultation bilaterally, unlabored, Cardiovascular: Normal pulses, Regular rate/rhythm, Normal S1 S2 Gastrointestinal: Normal bowel sounds, Soft and benign Musculoskeletal: No clubbing, No swelling, Other (unsteady gait) Integumentary: No breakdown, No significant lesion Neurological: Normal speech, Normal tone, Sensation intact, Cranial nerves 3-12 intact Assessment And Plan - Plan Assessment and Plan - Plan Recurrent hypoglycemia improved Will watch closely Will hold antidiabetic medications orthostatic hypotension improved dizziness improved unsteadt gait ortho vs, ns given, meclizine mri no acute abn, pt eval dc home w [facility] Hypertension Antihypertensives titrated Continue home medications and titrate as needed Hyperlipidemia Continue statin Acute kidney injury Monitor renal parameters Electrolytes monitor and replace accordingly IV hydration Diabetes Insulin sliding scale Accu-Chek before every meal and at bedtime GI/DVT prophylaxis Advanced directive full code Discharge Plan: Home Plan to discharge in: 24 Hours - Advance Directives Does patient have a Living Will: No Does patient have a Durable POA for Healthcare: No - Code Status/Comfort Care Code Status: Full Code Time Spent Managing Pts Care (In Minutes): 30 Discharge Plan: Home w [facility] <Qiana Amaro - Last Filed: 10/19/24 12:34> Patient has done well during hospital stay. Patient is clinically doing much better. Labs are stable. At this time, patient is stable for discharge with outpatient follow-up with PCP and specialist. Patient is told to call me if he has any questions over the next few days and we can give patient taking care of at that time. <Sarai Barboza - Last Filed: 10/20/24 05:12>
== END 2024-10-17 11:23 | disposition home health service (06) | DRG 639 ==
LOC: ER 21:51 → ERHOLD 10-14 01:18 → 2ND 10-14 01:57 → OBSVTOIN 10-15 14:06
PROVIDERS: ADMIT Family Medicine; ATTEND Hospitalist
DX: E11.649 Type 2 diabetes mellitus with hypoglycemia without coma (principal); N17.9 Acute kidney failure, unspecified; I95.1 Orthostatic hypotension; R26.81 Unsteadiness on feet; T38.3X5A Adverse effect of insulin and oral hypoglycemic [antidiabetic] drugs, initial encounter; I10 Essential (primary) hypertension; E78.5 Hyperlipidemia, unspecified; F03.90 Unspecified dementia, unspecified severity, without behavioral disturbance, psychotic disturbance, mood disturbance, and anxiety; Z79.4 Long term (current) use of insulin
CPT/HCPCS: 36415; 70551; 71045; 80048; 80053; 80069; 80076; 81001; 82947; 83036; 83525; 83735; 83880; 84100; 84484; 84681; 85025; 85027; 85610; 87086; 87088; 93005; 93880; 94760; 96365; 96366; 97112; 97116; 97161; 97530; 99285; G0378; J0360; J7030; J7042; J7799; J8597